=== PATIENT | female | born 1935 | race African-American/Black ===

== ENCOUNTER 2016-10-15 11:05 | Inpatient (IN) ==
[2016-10-15] MEDS ORDERED: ONDANSETRON 4 MG/2 ML VIAL ONE (11:23)
[2016-10-15] MEDS ORDERED: MORPHINE 2 MG/1 ML SYRINGE IV STA (11:26)
[2016-10-15] MEDS ORDERED: ENOXAPARIN 100 MG/ML SYRINGE SUBCUT STA (11:26)
[2016-10-15] MEDS ORDERED: NITROGLYCERIN 2% OINT 1 INCH/GM PACK TOP STA (11:26)
[2016-10-15] MEDS ORDERED: ASPIRIN 325 MG TABLET PO STA (11:26)
[2016-10-15] MEDS ORDERED: METOPROLOL TARTRATE 5 MG/5 ML VIAL IV STA (11:26)
[2016-10-15] MEDS ORDERED: ONDANSETRON 4 MG/2 ML VIAL IV STA (11:26)
[2016-10-15] MEDS ORDERED: NITROGLYCERIN SL 0.4 MG TABLET SL PRN (11:26)
[2016-10-15] MEDS ORDERED: ENOXAPARIN 60 MG/0.6 ML SYRINGE ONE (11:30)
[2016-10-15] MEDS ORDERED: METOPROLOL TARTRATE 5 MG/5 ML VIAL IV ONE (11:30)
[2016-10-15] MEDS ORDERED: NITROGLYCERIN 2% OINT 1 INCH/GM PACK TOP ONE (11:30)
[2016-10-15] MEDS ORDERED: MORPHINE 2 MG/1 ML SYRINGE ONE (11:30)
[2016-10-15] MEDS ORDERED: ASPIRIN 325 MG TABLET ONE (11:30)
--- NOTE | 2016-10-15 11:38 | Emergency Department Note ---
Getachew Williamson Mantricia, am scribing for, and in the presence of, Rosas Parker MD 11:33. Elena Williamson James D, MD, personally performed the services described in this documentation, ascribed by Zachariah Chilel in my presence, and it is both accurate and complete . Arrival - Arrival Chief Complaint: Chest Pain Stated Complaint: CP/HTN ED Nursing Triage Note: pt c/o midsternal chest pain onset 0900 this am. pain is worse with movement. +sob. pt has rec'd zofran and ntg per EMS. Mode of Arrival: Stretcher Limitations: No Limitations Source: Patient, Family Time Seen by Provider: 10/15/16 11:21 - History of Present Illness HPI Narrative: Pt is an 81 y/o black female arriving to ED with c/o chest pain that onset 0900 today. She states that the pain has been waxing and waning for a week now and worsened today. Pt has a PSHx of open heart surgery and also has stents that were placed by Dr. Trejo. She states that this is the same pain that she experienced before she had her stents placed. She also c/o N/V and abdominal pain. The pain radiates to her back and her sides bilaterally. Pt states that her NTG usually helps; however she states that she does not uses it often. Pt is also very HTN; at time of consultation her blood pressure is 218/136. She reports no other complaints to ED. Onset (ago): hour(s) Consistency: constant Severity: mild Allergies/Adverse Reactions: Allergies Allergy/AdvReac Type Severity Reaction Status Date / Time Penicillins Allergy RASH Verified 10/15/16 11:21 Home Medications: Home Medications Medication Instructions Recorded Confirmed Type Aspirin Chew Tab 81 mg PO DAILY 08/18/15 10/16/16 History Gabapentin 600 mg PO TID 08/18/15 10/16/16 History Lisinopril 20 mg PO DAILY 08/18/15 10/16/16 History Meloxicam 15 mg PO BEDTIME 08/18/15 10/16/16 History Spironolactone 12.5 mg PO DAILY 08/18/15 10/16/16 History Acetaminophen Tab [Tylenol Tab] 325 mg PO BID #30 tablet 10/16/16 Rx Atorvastatin [Lipitor] 20 mg PO DAILY 10/16/16 10/16/16 History Carvedilol [Coreg] 6.25 mg PO BID #60 tablet 10/16/16 Rx Furosemide Tab [Lasix Tab] 10 mg PO DAILY 10/16/16 10/16/16 History Naproxen Sodium [Aleve] 220 mg PO Q8HR PRN 10/16/16 10/16/16 History hydrOXYzine HCl [Hydroxyzine HCl] 25 mg PO TID PRN #0 10/16/16 10/16/16 Rx traMADol TAB [Ultram] 50 mg PO BID tablet 10/16/16 Rx Review of System - Review of System 12 point system: reviewed and no additional remarkable complaints except as stated - Review of System Constitutional: Absent: chills, diaphoresis, fever Eyes: Absent: as per HPI, discharge, pain Cardiovascular: Present: chest pain Gastrointestinal: Present: abdominal pain, nausea, vomiting. Absent: diarrhea Medical,Surgical,& Family Hx - Medical History Cardio: History of: CAD, Hypertension, ID Genitourinary: History of: Kidney Stones Musculoskeletal: History of: Musculoskeletal Problems (age related arthritis) - Surgical History Cardiac Surgeries: Sugical HX of: Cardiac Catheterization (with stents), Cardiac Surgery (CABG) Reproductive Surgeries: Surgical HX of;: Gynecologic Surgery, Hysterectomy - Family History Family History: Reports;: Family Cancer (dad), Family Hypertension, Family Stroke (dad) Denies;: Family Diabetes, Family Heart Disease, Family Psychiatric Problems - Social History Smoking Status: Never smoker Frequency of Alcohol Use: None Type of Drug Use: None Exam Physical Examination: ADULT: GENERAL: This is a well-nourished, well-developed female in no apparent distress. VITAL SIGNS: HEENT: Head is normocephalic and atraumatic. Pupils are equally round and reactive to light. Extraocular movement are intact. Oropharynx is benign with moist mucous membranes. NECK: Neck is soft and supple without tenderness. There are no masses. There is no lymphadenopathy. LUNGS: Lungs are clear to auscultation bilaterally. Chest rises symmetrically. There is no chest wall tenderness. CV: Heart is regular rate and rhythm without murmurs, rubs, or gallops. ABDOMEN: Abdomen is soft, epigastric abdominal pain TTP. There are no abnormal masses palpated. There is no organomegaly. Bowel sounds are present and active. SKIN: Cool and moist. No rash. EXTREMITIES: Patient has full range of motion without tenderness. There is no pedal edema. NEUROLOGIC: Awake, alert, and oriented x4. Cranial nerves II through XII are grossly intact. There are no motorsensory deficits. PSYCHIATRIC: Normal affect. Normal mood. Vital Signs: Vital Signs Temperature 98.0 F 10/16/16 12:00 Pulse Rate 60 10/16/16 14:00 Respiratory Rate 19 10/16/16 14:00 Blood Pressure 105/67 10/16/16 14:00 O2 Sat by Pulse Oximetry 93 L 10/16/16 14:00 Course Course Narrative: Patient was given IV Zofran, morphine, Lopressor, nitroglycerin infusion, and Lovenox subcu on arrival to the emergency department. Patient had progressive improvement in her pain but never had pain totally relieved while in the emergency department. Patient will be taken to the Pulpit Operator for left heart cath and probable PCI. - Consultations Consultation #1: Discussed with Dr. Trejo. Patient will be seen in the emergency department. Time: 11:36 Results - Labs CBC & BMP: 10/16/16 05:00 10/16/16 05:00 Lab Results: I have reviewed the patients labs Labs: Laboratory Tests 10/15/16 11:26 INR 1.0 - EKG EKG results: interpreted by ERMD - Impressions EKG: Normal sinus rhythm with a rate of 66, ST segment depression inferiorly and laterally consistent with ischemia, incomplete right bundle branch block. - Diagnostic Findings Procedure: Chest x-ray: image reviewed by me Critical Care Time Critical Care Time: Yes Total Critical Care Time: 60 (IV morphine, Zofran, subcu Lovenox, IV nitro infusion, IV Lopressor while in emergency department.) Disposition Clinical Impression: Chest pain Case discussed with: patient Disposition: Still a Patient Condition: Guarded New Prescriptions: Rx's Medication Instructions Recorded Acetaminophen Tab [Tylenol Tab] 325 mg PO BID #30 tablet 10/16/16 Carvedilol [Coreg] 6.25 mg PO BID #60 tablet 10/16/16 hydrOXYzine HCl [Hydroxyzine HCl] 25 mg PO TID PRN #0 10/16/16 traMADol TAB [Ultram] 50 mg PO BID tablet 10/16/16
[2016-10-15 11:42] LABS: Basophils % 0.5 % (0.0-0.8); Eosinophils # 0.1 10*3/uL (0.0-0.87); Eosinophils % 1.2 % (0.00-10.9); Hematocrit 39.5 VOL% (35.7-47.0); Hemoglobin 13.1 GM/DL (12.0-16.0); Immature Granulocytes % 0.1 %; Immature Granulocytes Absolute 0.01 #; Lymphocytes # 4.4 10*3/uL (1.4-4.0); Lymphocytes % 57.3 % (21.3-54.2); Mean Corpuscular HGB Conc 33.2 GM/DL (32-36); Mean Corpuscular Hemoglobin 30 PG (27-34); Mean Corpuscular Volume 91.2 FL (87-102); Mean Platelet Volume 9.4 FL (9.6-12.0); Monocytes # 0.5 10*3/uL (0.11-0.8); Monocytes % 5.9 % (1.7-12.7); Neutrophils # 2.7 10*3/uL (1.4-7.4); Platelet Count 282 T/CUMM (130-400); Red Blood Count 4.33 MC/CUMM (3.8-5.5); White Blood Count 7.6 T/CUMM (4-12)
[2016-10-15] MEDS: NITROGLYCERIN DRIP 50 MG/250 ML BOTTLE IV SCH (11:48)
[2016-10-15 11:53] LABS: PT Patient Result 10.4 SECS; Partial Thromboplastin Time 26.1 SECS (0-40)
[2016-10-15] MEDS ORDERED: SODIUM CHLORIDE 0.9% 1,000 ML IV SCH (12:00)
[2016-10-15 12:02] LABS: Band Neutrophils 1 % (0-10); Eosinophils 2 % (0-10); Hypochromasia 1+; Lymphocytes 53 % (20-55); Segmented Neutrophils 37 % (50-85); Total Cells Counted 100
[2016-10-15 12:03] LABS: Microcytosis Slight; Platelet Estimate Normal
--- NOTE | 2016-10-15 12:08 | XRay Report ---
Referring Physician: Rosas Parker Exam: XR chest 1V portable Date: October 15, 2016 at 11:41 AM Reason: Chest pain Comparison: Chest 2 views August 21, 2015 Findings: The cardiac silhouette is again enlarged, and the patient is status post sternotomy. The interstitial markings are mildly prominent bilaterally, which could represent mild pulmonary edema. No pneumothorax or pleural fluid is identified. No acute osseous process is seen. Impression: Cardiomegaly and possible mild pulmonary edema. PROCEDURE INTERPRETED AT [facility] DEPARTMENT OF RADIOLOGY Final Report Signed by: Dr. Izabella Begum
[2016-10-15 12:14] LABS: Albumin 4.2 G/DL (3.4-5.0); Bilirubin,Total 1.2 MG/DL (0.2-1.0); Calcium 9.5 MG/DL (8.5-10.1); Osmolality,Calculated 278.5 MOS/KG (273-304); Potassium 3.6 MMOL/L (3.5-5.1); Total Protein 7.3 G/DL (6.4-8.3)
[2016-10-15] MEDS ORDERED: HEPARIN/NACL 0.9% 2 UNITS/ML 1,000 ML IV ONE (12:25)
[2016-10-15] MEDS ORDERED: LIDOCAINE 1% 20 ML VIAL ONE (12:25)
--- NOTE | 2016-10-15 12:31 | Cardiology History & Physical ---
Assessment and Plan - Time spent with patient Time spent with patient: Greater than 30 minutes (Due to assessment, plan, and documentation.) (1) Unstable angina Status: Acute Assessment and plan: See plan of care listed below. Current Visit: Yes (2) Ischemic cardiomyopathy Status: Chronic Assessment and plan: See plan of care listed below. Current Visit: Yes (3) Hx of CABG Status: Chronic Assessment and plan: See plan of care listed below. Current Visit: No (4) CAD (coronary artery disease) Status: Chronic Assessment and plan: See plan of care listed below. Current Visit: Yes (5) Hypertension Status: Chronic Assessment and plan: See plan of care listed below. Current Visit: Yes (6) Systolic CHF, chronic Status: Chronic Assessment and plan: See plan of care listed below. Current Visit: Yes (7) Hyperlipidemia Status: Chronic Assessment and plan: See plan of care listed below. Current Visit: Yes (8) Arthritis Status: Chronic Assessment and plan: See plan of care listed below. Current Visit: Yes (9) Debility Status: Chronic Assessment and plan: See plan of care listed below. Current Visit: No (10) Non-adherence to medical treatment Status: Chronic Assessment and plan: See plan of care listed below. Current Visit: No History of Present Illness Chief complaint: Chest pain History of present illness: Mobile Lounge Driver Or Operator: Dr. Trejo PCP: Dr. Jade Ms. Moreau is being seen in the emergency room, room #20. Ms. Moreau is a 81 year old -[place] female female with a history of ischemic cardiomyopathy, coronary artery disease, hypertension, hyperlipidemia, chronic systolic congestive heart failure, arthritis, anxiety and depression. She is status post three-vessel coronary artery bypass grafting on 09/07/2012 with GREWAL graft to LAD, vein graft to the intermediate, vein graft to the posterior descending artery. She is status post non-Q-wave infarction 2012 with total occlusion of the intermediate branch which was stented by Dr. Castro. She is status post recurrent infarction 05/29/2013 with occlusion of the intermediate branch with restenting by Dr. Trejo. At that time the GREWAL graft to the LAD was patent, vein graft to PDA was patent and vein graft to the inferior branch was chronically occluded. She quit smoking approximately 40 years ago. Ms. Moreau presented to the emergency room today with complaints of mid to left sided chest pain. Her blood pressure was noted to be 213/117 on admission. She reports this pain has been waxing and waning for approximately 1 week but got worse around 9:00 this morning and she decided to seek treatment. She tells me this is the same pain that she experienced before she had her stents placed. She has associated shortness of breath, nausea, vomiting , and diaphoresis. Upon exam, she is very tender to palpation of her left chest wall beneath the left breast. This pain radiates around to her left side. She also reports she has recently had some occasional left arm pain but has attributed this to arthritis. She has had some chronic issues with chest wall pain but on her EKG today she does have some inferolateral changes that were not present on her EKG from June of this year. She has been placed on a nitro glycerin infusion and also received Zofran and nitroglycerin via EMS. Her initial troponin is negative, creatinine is 1.0, potassium 3.6, H&H 13.1 and 39.5. Given her significant cardiac history and EKG changes, is felt she would be best served with repeat heart catheterization to evaluate for new or worsening blockages. ASSESSMENT/PLAN: 1. UNSTABLE ANGINA - Patient presents with inferolateral EKG changes and symptoms suspicious for angina. Initial troponin is negative, but given her history, it was felt she would be best served with repeat left heart catheterization to evaluate for new or worsening obstructive disease. Dr. Trejo has discussed with Dr. Castillo and he has agreed to take Ms. Moreau to the brick and blocker aid labor this afternoon. 2. ISCHEMIC CARDIOMYOPATHY - Last documented EF 20-40% in September 2015. 3. HISTORY OF CABG - She is status post three-vessel coronary artery bypass grafting on 09/07/2012 with GREWAL graft to LAD, vein graft to the intermediate, vein graft to the posterior descending artery. 4. CAD - She is status post three-vessel coronary artery bypass grafting on 09/07 with GREWAL graft to LAD, vein graft to the intermediate, vein graft to the posterior descending artery. She is status post non-Q-wave infarction 2012 with total occlusion of the intermediate branch which was stented by Dr. Castro. She is status post recurrent infarction 05/29/2013 with occlusion of the intermediate branch with restenting by Dr. Trejo. At that time the GREWAL graft to the LAD was patent, vein graft to PDA was patent and vein graft to the inferior branch was chronically occluded. 5. HYPERTENSION - BP 213/117 on admission. She has been started on IV nitroglycerin. Will continue to monitor and adjust accordingly. 6. CHRONIC SYSTOLIC CHF - Currently has no overt signs of heart failure at this time. 7. HYPERLIPIDEMIA - Continue lipid lowering agent. 8. ARTHRITIS - Chronic. 9. DEBILITY - Chronic. 10. NON-COMPLIANCE - Has had a history of noncompliance with medications in the past. Dr. Trejo to follow with further plan and addendum. Home Medications Medication Instructions Recorded Confirmed Type Aspirin Chew Tab 81 mg PO DAILY 08/18/15 08/18/15 History Carvedilol [Coreg] 25 mg PO BID 08/18/15 08/18/15 History Gabapentin 600 mg PO TID 08/18/15 08/18/15 History Lisinopril 20 mg PO DAILY 08/18/15 08/18/15 History Meloxicam 15 mg PO BEDTIME 08/18/15 08/18/15 History Spironolactone 25 mg PO DAILY 08/18/15 08/18/15 History hydrOXYzine HCl [Hydroxyzine HCl] 25 mg PO TID 08/18/15 08/18/15 History Furosemide Tab [Lasix Tab] 40 mg PO DAILY #30 tablet 08/21/15 Rx Lovastatin [Mevacor] 40 mg PO BEDTIME #30 tablet 08/21/15 Rx Allergies Allergy/AdvReac Type Severity Reaction Status Date / Time Penicillins Allergy RASH Verified 10/15/16 11:21 Review of systems: - Constitutional: Present: As per HPI. Absent: anorexia, chills, daytime sleepiness, excessive sweating, fever(s), frequent falls, headache(s), increased appetite, lethargy, malaise, night sweats, stops breathing during sleep, weakness, weight gain, weight loss, fatigue. - EENT Eyes: Present: As per HPI. Absent: blurry vision, diplopia, loss of vision Ears: Present: As per HPI. Absent: decreased hearing, ear discharge, ear pain Nose, mouth and throat: Present: As per HPI. Absent: dysphagia, epistaxis, headache(s), hoarseness, lip swelling, nasal congestion, neck mass, neck pain, sinus pressure, sore throat, throat swelling, tongue swelling, vertigo - Cardiovascular: Present: chest pain at rest, chest pain with activity, dyspnea, dyspnea on exertion, radiating jaw, neck or arm pain, as per HPI. Absent:edema, claudication, diaphoresis, lightheadedness, orthopnea, palpitations, PND - Respiratory: Present: dyspnea, dyspnea on exertion, as per HPI. Absent: cough , hemoptysis, wheezing, snoring, pain on inspiration - Gastrointestinal: Present: abdominal pain, nausea, vomiting, As per HPI. Absent: bloating, change in bowel habits, constipation, diarrhea, heartburn, hematemesis, hematochezia, loose stools, melena - Genitourinary: Present: As per HPI. Absent: difficulty urinating, dysuria, flank pain, hematuria, nocturia, urinary frequency, urinary incontinence - Musculoskeletal: Present:arthralgias, As per HPI. Absent: back pain, joint swelling, limited range of motion, muscle cramps, muscle weakness - Neurological: Present: As per HPI. Absent: abnormal gait, abnormal speech, behavioral changes, confusion, convulsions, disequilibrium, dizziness, focal weakness, frequent falls, headache(s), memory loss, numbness, paresthesias, radicular pain, syncope, tremor(s) - Psychiatric: Present: As per HPI. Absent: anxiety, confusion, depression, panic attacks - Endocrine: Present: As per HPI. Absent: cold intolerance, fatigue, heat intolerance, polydipsia, polyphagia - Hematologic/Lymphatic: Present: As per HPI. Absent: easy bleeding, easy bruising, lymphadenopathy Medical,Surgical,& Family Hx - Medical History Cardio: History of: CHF, CAD, Hypertension, PR Genitourinary: History of: Kidney Stones Gastrointestinal: History of: GERD Musculoskeletal: History of: Musculoskeletal Problems (age related arthritis) - Surgical History Cardiac Surgeries: Sugical HX of: Cardiac Catheterization (with stents), Cardiac Surgery (CABG) Reproductive Surgeries: Surgical HX of;: Gynecologic Surgery, Hysterectomy - Family History Family History: Reports;: Family Cancer (dad), Family Hypertension, Family Stroke (dad) Denies;: Family Diabetes, Family Heart Disease, Family Psychiatric Problems - Social History Smoking Status: Former smoker Frequency of Alcohol Use: None Type of Drug Use: None Marital Status: Legally Lives With:: Alone Functional capacity: independent ambulation Cardiology Physical Exam - Constitutional Vitals: Vital Signs Temp Pulse Resp BP Pulse Ox 98.0 F 69 18 213/117 100 10/15/16 11:15 10/15/16 11:15 10/15/16 11:51 10/15/16 11:15 10/15/16 11:05 Intake and Output 10/14/16 10/15/16 10/15/16 22:59 06:59 14:59 Other: Weight 137 lb Patient Weight 10/16/16 06:59 Weight 137 lb Exam: General appearance: Pleasant and cooperative. Normal weight, no acute distress. - Head Head exam: Present: normal inspection, normocephalic, atraumatic. Absent: hematoma, laceration - Eye Eye exam: Present: EOMI. Absent: conjunctival injection, nystagmus, periorbital swelling, scleral icterus, laceration to eyelids Pupils: Present: PERRL. Absent: constricted, dilated, fixed, irregular, unequal - ENT ENT exam: Present: normal exam, normal external ear exam - Neck Neck exam: Present: normal inspection. Absent: lymphadenopathy, meningismus, tenderness, thyromegaly - Respiratory Respiratory exam: Present: clear to auscultation bilaterally. Absent: accessory muscle use, chest wall tenderness - Cardiovascular Cardiovascular exam: Present: regular rate and rhythm, chest wall tenderness. Absent: carotid bruit, gallop, JVD, rubs, murmur - GI/Abdominal GI/Abdominal exam: Present: normal bowel sounds, soft. Absent: distended, firm , guarding, hernia, mass, tenderness, rebound. - Extremities Exam Extremities exam: Present: normal inspection, normal capillary refill. Upper extremity pulses 2+. Lower extremity pulses 2+. Absent: calf tenderness, edema -Musculoskeletal Exam Musculoskeletal: Present: No Fluid Collection, No Pain, Normal Range of Motion - Back Exam Back exam: Present: normal inspection. Absent: muscle spasm, vertebral tenderness - Neurological Exam Neurological exam: Present: alert, oriented X3, grossly intact without resting or essential tremor - Psychiatric Psychiatric exam: Present: normal affect, normal mood - Skin Skin exam: Present: normal color, warm, dry, intact. Absent: cyanosis, diaphoretic, rash, urticaria Result/EKG - Labs CBC & BMP: 10/15/16 11:26 10/15/16 11:26 Lab Results: I have reviewed the past 24 hour labs Labs: Laboratory Results - last 24 hr 10/15/16 10/15/16 10/15/16 11:26 11:26 11:26 WBC 7.6 RBC 4.33 Hgb 13.1 Hct 39.5 MCV 91.2 MCH 30 MCHC 33.2 RDW 13.0 Plt Count 282 MPV 9.4 L Neut % (Auto) 35.0 L Lymph % (Auto) 57.3 H [place] % (Auto) 5.9 Eos % (Auto) 1.2 Baso % (Auto) 0.5 Neut # (Auto) 2.7 Lymph # (Auto) 4.4 H [place] # (Auto) 0.5 Eos # (Auto) 0.1 Baso # (Auto) 0.0 Total Counted 100 Immature Gran % 0.1 Nucleated RBC % 0.0 Immature Gran # 0.01 Segmented Neutrophils 37 L Band Neutrophils 1 Lymphocytes 53 Monocytes 7 Eosinophils 2 Nucleated RBCs # 0.00 Platelet Estimate Normal Hypochromasia 1+ Microcytosis Slight INR 1.0 PT Patient/Control Mix 10.4 Circ Anticoag PTT 26.1 Sodium 139 Potassium 3.6 Chloride 104 Carbon Dioxide 25 Anion Gap 13.6 BUN 15 Creatinine 1.00 GFR Calculation 61 BUN/Creatinine Ratio 15.00 Glucose 114 H Calculated Osmolality 278.5 Calcium 9.5 Total Bilirubin 1.20 H AST 22 ALT 33 Alkaline Phosphatase 104 Troponin I Total Protein 7.3 Albumin 4.2 Globulin 3.1 Albumin/Globulin Ratio 1.3 Lipase 80.0 10/15/16 11:26 WBC RBC Hgb Hct MCV MCH MCHC RDW Plt Count MPV Neut % (Auto) Lymph % (Auto) [place] % (Auto) Eos % (Auto) Baso % (Auto) Neut # (Auto) Lymph # (Auto) [place] # (Auto) Eos # (Auto) Baso # (Auto) Total Counted Immature Gran % Nucleated RBC % Immature Gran # Segmented Neutrophils Band Neutrophils Lymphocytes Monocytes Eosinophils Nucleated RBCs # Platelet Estimate Hypochromasia Microcytosis INR PT Patient/Control Mix Circ Anticoag PTT Sodium Potassium Chloride Carbon Dioxide Anion Gap BUN Creatinine GFR Calculation BUN/Creatinine Ratio Glucose Calculated Osmolality Calcium Total Bilirubin AST ALT Alkaline Phosphatase Troponin I < 0.015 Total Protein Albumin Globulin Albumin/Globulin Ratio Lipase - EKG EKG results: interpreted by me, sinus rhythm (With ST-T abnormality)
[2016-10-15] MEDS ORDERED: fentaNYL 100 MCG/2 ML VIAL ONE (12:41)
[2016-10-15] MEDS ORDERED: MIDAZOLAM 2 MG/2 ML VIAL ONE (12:41)
--- NOTE | 2016-10-15 12:41 | History and Physical Update ---
Sedation H&P Update - History and Physical H&P was reviewed, the patient examined and there: are no changes in the patients condition since last H&P was completed. - Dictation Physical: refer to H&P completed by admitting physician - Physical Exam Mental Status: alert and oriented Heart: regular rate and rhythm Lung: clear to auscultation ([place] has few scant bibasilar rales.) Abdomen: within normal limits Vitals: within normal limits - Sedation Plan for Sedation: minimal Patient Consent: Procedure disscussed with patient and patinet has consented., Risks and benefits were discussed with patient,including infection,, bleeding, injury to surrounding structures, seizure, temporary nerve, Patient understands and accepts potential risks/benefits and agrees to, proceed. ASA Class: IV Airway Assessment: Class II: Soft palate, uvula, fauces visible
[2016-10-15] MEDS ORDERED: ACETAMINOPHEN 325 MG TABLET PO PRN (12:55)
[2016-10-15] MEDS ORDERED: ZALEPLON 5 MG CAPSULE PO PRN (12:55)
[2016-10-15] MEDS ORDERED: BISACODYL 5 MG TABLET PO PRN (12:55)
[2016-10-15] MEDS ORDERED: MAGNESIUM SULF RIDER 2 GM in PREMIX 1 EACH IV PRN (12:55)
[2016-10-15] MEDS ORDERED: MAGNESIUM SULF RIDER 4 GM in PREMIX 1 EACH IV PRN (12:55)
[2016-10-15] MEDS ORDERED: EPTIFIBATIDE 75 MG/100 ML BOTTLE IV ONE (13:08)
[2016-10-15] MEDS ORDERED: EPTIFIBATIDE 20,000 MCG/10 ML VIAL ONE (13:08)
--- NOTE | 2016-10-15 13:42 | Cardiac Catheterization ---
Date of Procedure:: 10/15/16 Pre-op Diagnosis: Acute coronary syndrome (typical pain with abnormal EKG and known coronary artery disease initial troponin negative) Post-op diagnosis: same Procedure: Procedure: 1. Left heart catheterization resting hemodynamics 2. Selective left and right coronary angiography 3. Selective saphenous vein graft injection to the RCA 4. Selective angiography left subclavian artery with visualization of the ALEJANDRINA graft in situ to the distal LAD 5. Right femoral iliac angiography 6. Closure right femoral arteriotomy Angio-Seal closure device 7. Wiring attempt of possible acute but apparent chronic occlusion of the ostium of the second diagonal (unsuccessful with her course wire felt to be chronic and aborted) After consent was taken from the patient. Taken to the catheterization lab for left heart catheterization via the femoral artery. Time out was taken and recorded. 1% lidocaine was infiltrated in the skin and subcutaneous tissue overlying the right femoral artery. Modified Seldinger technique and an 18- gauge LikeWhere needle was used for access to the right femoral artery. An 0.35 J- wire was advanced through the needle into the central aorta under fluoroscopy. A small skin was made and a 6 Azeri sheath was placed over the wire. The sheath was aspirated and flushed. A JL46 was advanced over the wires in the left main coronary artery was selectively engaged. Multiple orthogonal views of the left system were obtained. The catheter was then exchanged over the wire. The sheath was aspirated and flushed. A JR4 catheter was advanced over the wire into the central aorta. The right coronary was selectively engaged and orthogonal views of the right coronary artery were obtained. The catheter was then pulled back in the saphenous vein graft to the RCA was visualized and 2 orthogonal views. Cath was pulled back and the left subclavian was selectively engaged in AP projection BISHOP cranial projection of this ALEJANDRINA graft to the distal LAD was visualized. The catheter was then exchanged over the wire, the sheath was aspirated and flushed. At this time an angled pigtail catheter was advanced across the aortic valve into the ventricle. Pressure measurements were obtained. Pullback measurements were performed. At this time Integrilin bolus and infusion were initiated on the background of milligrams every morning subcu Lovenox given in the emergency room and EBU 3.5 guiding catheter advanced over the wire in the central aorta the left main coronary selectively engaged. A 180 cm [email or web address]-water wire was advanced into the proximal LAD and attempts to wire the first diagonal were unsuccessful. The area of the nipple was engaged but was very difficult would not advance. This certainly looks as though it is not acute. Several attempts were made unsuccessfully based on the patient's frailty the presentation etc. was felt that it was best not to proceed with [employer] techniques at this time in this acute setting. This is a relatively small vessel a long area of stenosis and a small target of in-stent restenosis. The roll table operator reviewed the films. The sheath was aspirated and flushed and a right femoral and iliac angiography was performed. The access site was amenable for closure and the area was reprepped with ChloraPrep and draped with sterile towels. The Angio-Seal closure device was used in standard technique. There was no hematoma and distal pulses were good. Total diagnostic fluoroscopy time 4.6 minutes total fluoroscopy dose 389 mGy Total contrast exposure 110 cc of Visipaque FINDINGS: LV: 146/11 LVEDP: 24 Ao: 142/76 EF: Not assessed LM: Mild luminal irregularities. LAD: Left anterior descending artery is a large vessel is occluded just after the takeoff of the second diagonal. Both the first and second diagonal who previously been stented. The first diagonal has a abrupt cut off just after leaving the mother vessel and has a discrete pointed suggestive of an acute occlusion however there is collaterals develop to the distal portion of this vessel is filled by collaterals from the second diagonal into the stent. This is retrograde filling. The second diagonal stents are patent with mild lumen loss. LCx: This is a nondominant vessel is diffusely moderately diseased and places up to 60%. RCA: Is a large dominant vessel that is diffusely diseased but no high-grade epicardial stenosis. Saphenous vein graft to the distal RCA is unremarkable. There is a large ALEJANDRINA to the distal LAD no high-grade epicardial stenosis there is a branch vessel that is not occluded. RFA/ELIZABETH: There is mild luminal irregularities and is highly calcified vessel. Assessment: 1. The only identifiable change since her 2013 post PCI intervention is 100% occluded second diagonal. This appears to be chronic based on inability to wire it. 2. Decompensated ischemic cardiomyopathy left ventricular cell pressure 24 3. Widely patent GREWAL to the LAD 4. Widely patent saphenous vein graft to distal RCA 5. 100% occlusion of the first diagonal stent 6. Uncontrolled blood pressure (above pressures were measured on a nitro infusion at 20 mics per minute) PLAN: 1. Look for other causes of the patient's acute chest pain 2. Control blood pressure 3. Wean nitrates and resume heart failure regimen 4. Cardiac rehabilitation evaluation Implants: Angio-Seal closure device Anesthesia: minimal conscious sedation Surgeon / Physician: Anu Castillo Non Profit Director: none Estimated blood loss: none Specimens: none sent Condition: stable Disposition: ICU/CCU - Medications / Follow-up
[2016-10-15] MEDS: GABAPENTIN 600 MG TABLET PO SCH ×2 (15:30→20:51)
[2016-10-15] MEDS: hydrOXYzine HCL 25 MG TABLET PO SCH ×2 (15:31→20:52)
[2016-10-15] MEDS: PANTOPRAZOLE 40 MG TABLET PO SCH (15:31)
[2016-10-15] MEDS: traMADol 50 MG TABLET PO SCH ×2 (16:29→20:51)
[2016-10-15] MEDS: ACETAMINOPHEN 325 MG TABLET PO SCH (20:52)
[2016-10-15] MEDS ORDERED: CARVEDILOL 25 MG TABLET PO SCH (21:00)
[2016-10-15] MEDS ORDERED: LOVASTATIN 20 MG TABLET PO SCH (21:00)
--- NOTE | 2016-10-16 04:44 | EKG Report ---
Stationary ECG Study [facility] ER Test Date: 10/15/2016 11:15:36 AM Pat Name: ZOE POLLOCK Department: Room: Gender: F Folder Operator: : 1935 Requested by: Rosas Holbrook Order Number: [id number] Reading MD: VALENCIA BANKS Intervals [place] Rate: 66 P: 17 NC: 184 QRS: 166 QRSD: 96 T: 200 QT: 414 QTc: 427 Interpretive Statements SINUS RHYTHM INCOMPLETE RIGHT BUNDLE BRANCH BLOCK RIGHT VENTRICULAR HYPERTROPHY MODERATE ST DEPRESSION Electronically Signed On 10-15-16 17:10:51 CDT by VALENCIA BANKS [email or web address]
--- NOTE | 2016-10-16 04:44 | EKG Report ---
Stationary ECG Study [facility] Test Date: 10/15/2016 2:32:57 PM Pat Name: ZOE POLLOCK Department: Room: Gender: F Solar Installer: ADRIÁN : 1935 Requested by: Rosas Holbrook Order Number: [id number] Reading MD: VALENCIA BANKS Intervals [place] Rate: 57 P: 27 ID: [id number] QRS: -56 QRSD: 91 T: 151 QT: 487 QTc: 480 Interpretive Statements SINUS RHYTHM WITH PROLONGED ID INTERVAL WITH OCCASIONAL VENTRICULAR PREMATURE COMPLEXES LEFT ANTERIOR FASCICULAR BLOCK VOLTAGE CRITERIA FOR LVH POSSIBLE ANTERIOR MYOCARDIAL INFARCTION, OF INDETERMINATE AGE MODERATE T-WAVE ABNORMALITY, CONSIDER LATERAL ISCHEMIA INTERPRETATION BASED ON A DEFAULT AGE OF 40 YEARS Electronically Signed On 10-15-16 17:11:34 CDT by VALENCIA BANKS [email or web address]
[2016-10-16 05:55] LABS: Basophils % 0.7 % (0.0-0.8); Eosinophils # 0.1 10*3/uL (0.0-0.87); Eosinophils % 1.5 % (0.00-10.9); Hematocrit 32.6 VOL% (35.7-47.0); Hemoglobin 10.5 GM/DL (12.0-16.0); Immature Granulocytes % 0.2 %; Immature Granulocytes Absolute 0.01 #; Lymphocytes % 49.3 % (21.3-54.2); Mean Corpuscular HGB Conc 32.2 GM/DL (32-36); Mean Corpuscular Hemoglobin 30 PG (27-34); Mean Corpuscular Volume 93.4 FL (87-102); Mean Platelet Volume 9.7 FL (9.6-12.0); Monocytes # 0.4 10*3/uL (0.11-0.8); Monocytes % 6.2 % (1.7-12.7); Neutrophils # 2.5 10*3/uL (1.4-7.4); Neutrophils % 42.1 % (38.7-73.9); Platelet Count 229 T/CUMM (130-400); Red Blood Count 3.49 MC/CUMM (3.8-5.5)
[2016-10-16 06:26] LABS: Calcium 8.4 MG/DL (8.5-10.1); Osmolality,Calculated 279.3 MOS/KG (273-304); Potassium 3.6 MMOL/L (3.5-5.1)
[2016-10-16 06:29] LABS: Bilirubin,Total 1.1 MG/DL (0.2-1.0); Calcium 8.2 MG/DL (8.5-10.1); Osmolality,Calculated 280.3 MOS/KG (273-304); Potassium 3.6 MMOL/L (3.5-5.1); Risk Ratio 1.99; Total Protein 5.3 G/DL (6.4-8.3); VLDL CHOLESTEROL 11.6 MG/DL
[2016-10-16] MEDS: POTASSIUM CHLORIDE 20 MEQ TABLET PO PRN ×2 (07:09→09:08)
[2016-10-16] MEDS ORDERED: hydrOXYzine HCL 25 MG TABLET PO PRN (08:56)
[2016-10-16] MEDS ORDERED: CARVEDILOL 25 MG TABLET PO SCH (09:00)
[2016-10-16] MEDS ORDERED: LISINOPRIL 20 MG TABLET PO SCH (09:00)
[2016-10-16] MEDS ORDERED: ASPIRIN CHEW 81 MG TABLET PO SCH (09:00)
[2016-10-16] MEDS ORDERED: FUROSEMIDE 40 MG TABLET PO SCH (09:00)
[2016-10-16] MEDS ORDERED: SPIRONOLACTONE 25 MG TABLET PO SCH (09:00)
[2016-10-16] MEDS: GABAPENTIN 600 MG TABLET PO SCH ×2 (09:06→15:56)
[2016-10-16] MEDS: traMADol 50 MG TABLET PO SCH (09:06)
[2016-10-16] MEDS: PANTOPRAZOLE 40 MG TABLET PO SCH (09:08)
[2016-10-16] MEDS: ACETAMINOPHEN 325 MG TABLET PO SCH (09:16)
[2016-10-16] MEDS ORDERED: CARVEDILOL 3.125 MG TABLET PO SCH (09:30)
[2016-10-16] MEDS: NITROGLYCERIN DRIP 50 MG/250 ML BOTTLE IV SCH (12:12)
[2016-10-16] MEDS ORDERED: CARVEDILOL 6.25 MG TABLET PO SCH (12:57)
--- NOTE | 2016-10-16 14:14 | Discharge Summary ---
Hospital Course - Hospital Course Hospital Course: Transit Driver: Dr. Trejo PCP: Dr. Jade Ms. Moreau is a 81 year old -[place] female female with a history of ischemic cardiomyopathy, coronary artery disease, hypertension, hyperlipidemia, chronic systolic congestive heart failure, arthritis, anxiety and depression. She presented to the emergency room yesterday afternoon with complaints of mid to left sided chest pain. She had some inferolateral ST depression which is new compared to EKG in June 2016. She is also having some reproducible left -sided chest wall pain and reported that it was similar to her presenting pain but she seemed to have little bit more than just chest wall pain which is chronic for her. Dr. Castillo was available was asked to perform left heart catheterization to further define her coronary anatomy. This was done and the only identifiable change since her 2013 post PCI intervention is 100% occluded second diagonal which appears to be chronic since it was unable to be wired. She was found to have widely patent GREWAL to the LAD and vein graft to the distal RCA. Her cardiac biomarkers were unremarkable. It does not appear that she had a STEMI during this hospitalization and is more likely that her pain is coming from her chest wall pain which we have been treating. Following catheterization, she had some bradycardia during the night which is improved today. She takes Coreg 25 mg p.o. twice daily at home and we have decreased her dose to 6.25 mg p.o. twice daily. Upon exam today, she reports she is feeling much better. Her vital signs and lab work are stable and at this time she has met criteria for discharge. Her right groin is without bleeding or hematoma or bruit. Femoral pulses 3+. Distal pulses are present and palpable bilaterally. Upon discharge, we will continue her treatment for her chest wall pain and have her to follow-up with Dr. Trejo in 2-3 weeks. She will be given a handwritten prescription for Tramadol from Dr. Trejo upon discharge. - Time spent with patient Time with patient DS: Greater than 30 minutes Diagnosis - Discharge Diagnosis (1) Chest wall pain Status: Acute (2) Chest wall pain, chronic Status: Chronic (3) Ischemic cardiomyopathy Status: Chronic (4) Hx of CABG Status: Chronic (5) CAD (coronary artery disease) Status: Chronic (6) Hypertension Status: Chronic (7) Systolic CHF, chronic Status: Chronic (8) Hyperlipidemia Status: Chronic (9) Arthritis Status: Chronic (10) Debility Status: Chronic (11) Non-adherence to medical treatment Status: Chronic Specialty Discharge - Follow Up or Referrals Follow up with: Cristi Trejo MD [Physician] - 2 Weeks (Follow up with Dr. Trejo in 2-3 weeks. ) Discharge Plan - Discharge Data Disposition: Disch To Home/Self Care Condition at Discharge: Stable Discharge Diet: heart healthy Activity: no lifting (Do not lift over 5# x1 week. ) Hygiene: may shower (Do not sumberge cath site beneath water for 1 week. ) Weight Bearing at Discharge: full weight bearing Contact your physician if you experience:: fever over 101, Difficulty voiding, Redness or swelling, Nausea/Vomiting, Shortness of breath, Bleeding, pain uncontrolled by pain medications - Discharge Medications New traMADol TAB [Ultram] 50 mg PO BID tablet Acetaminophen Tab [Tylenol Tab] 325 mg PO BID #30 tablet Carvedilol [Coreg] 6.25 mg PO BID #60 tablet Continue Spironolactone 12.5 mg PO DAILY Meloxicam 15 mg PO BEDTIME Gabapentin 600 mg PO TID Lisinopril 20 mg PO DAILY Aspirin Chew Tab 81 mg PO DAILY Atorvastatin [Lipitor] 20 mg PO DAILY Furosemide Tab [Lasix Tab] 10 mg PO DAILY Naproxen Sodium [Aleve] 220 mg PO Q8HR PRN PRN Reason: Pain Changed hydrOXYzine HCl [Hydroxyzine HCl] 25 mg PO TID PRN #0 PRN Reason: Itching Discontinued Carvedilol [Coreg] 3.125 mg PO BID - Follow Up or Referral - Forms/Instructions Instructions: Left Heart Catheterization (DC), Hypertrophic Cardiomyopathy (GEN ), Heart Healthy Diet (GEN), Coronary Artery Disease in Women (GEN) Exam - Constitutional Vitals: Period Temp Pulse Resp BP Sys/Leon Pulse Ox Last 24 Hr 97.0 F-98.3 F 49-66 10-22 83-166/52-94 93-100 Exam: General appearance: Pleasant and cooperative. Normal weight, no acute distress. - Head Head exam: Present: normal inspection, normocephalic, atraumatic. Absent: hematoma, laceration - Eye Eye exam: Present: EOMI. Absent: conjunctival injection, nystagmus, periorbital swelling, scleral icterus, laceration to eyelids Pupils: Present: PERRL. Absent: constricted, dilated, fixed, irregular, unequal - ENT ENT exam: Present: normal exam, normal external ear exam - Neck Neck exam: Present: normal inspection. Absent: lymphadenopathy, meningismus, tenderness, thyromegaly - Respiratory Respiratory exam: Present: clear to auscultation bilaterally. Absent: accessory muscle use, chest wall tenderness - Cardiovascular Cardiovascular exam: Present: regular rate and rhythm, chest wall tenderness. Absent: carotid bruit, gallop, JVD, rubs, murmur - GI/Abdominal GI/Abdominal exam: Present: normal bowel sounds, soft. Absent: distended, firm , guarding, hernia, mass, tenderness, rebound. - Extremities Exam Extremities exam: Present: normal inspection, normal capillary refill. Upper extremity pulses 2+. Lower extremity pulses 2+. Absent: calf tenderness, edema -Musculoskeletal Exam Musculoskeletal: Present: No Fluid Collection, No Pain, Normal Range of Motion - Back Exam Back exam: Present: normal inspection. Absent: muscle spasm, vertebral tenderness - Neurological Exam Neurological exam: Present: alert, oriented X3, grossly intact without resting or essential tremor - Psychiatric Psychiatric exam: Present: normal affect, normal mood - Skin Skin exam: Present: normal color, warm, dry, intact. Absent: cyanosis, diaphoretic, rash, urticaria Discharge Results Procedures and tests throughout hospitalization: Date of Procedure:: 10/15/16 Procedure: 1. Left heart catheterization resting hemodynamics 2. Selective left and right coronary angiography 3. Selective saphenous vein graft injection to the RCA 4. Selective angiography left subclavian artery with visualization of the ALEJANDRINA graft in situ to the distal LAD 5. Right femoral iliac angiography 6. Closure right femoral arteriotomy Angio-Seal closure device 7. Wiring attempt of possible acute but apparent chronic occlusion of the ostium of the second diagonal (unsuccessful with her course wire felt to be chronic and aborted) FINDINGS: LV: 146/11 LVEDP: 24 Ao: 142/76 EF: Not assessed LM: Mild luminal irregularities. LAD: Left anterior descending artery is a large vessel is occluded just after the takeoff of the second diagonal. Both the first and second diagonal who previously been stented. The first diagonal has a abrupt cut off just after leaving the mother vessel and has a discrete pointed suggestive of an acute occlusion however there is collaterals develop to the distal portion of this vessel is filled by collaterals from the second diagonal into the stent. This is retrograde filling. The second diagonal stents are patent with mild lumen loss. LCx: This is a nondominant vessel is diffusely moderately diseased and places up to 60%. RCA: Is a large dominant vessel that is diffusely diseased but no high-grade epicardial stenosis. Saphenous vein graft to the distal RCA is unremarkable. There is a large ALEJANDRINA to the distal LAD no high-grade epicardial stenosis there is a branch vessel that is not occluded. RFA/ELIZABETH: There is mild luminal irregularities and is highly calcified vessel. Assessment: 1. The only identifiable change since her 2013 post PCI intervention is 100% occluded second diagonal. This appears to be chronic based on inability to wire it. 2. Decompensated ischemic cardiomyopathy left ventricular cell pressure 24 3. Widely patent GREWAL to the LAD 4. Widely patent saphenous vein graft to distal RCA 5. 100% occlusion of the first diagonal stent 6. Uncontrolled blood pressure (above pressures were measured on a nitro infusion at 20 mics per minute) PLAN: 1. Look for other causes of the patient's acute chest pain 2. Control blood pressure 3. Wean nitrates and resume heart failure regimen 4. Cardiac rehabilitation evaluation Labs on day of discharge: Labs from last 24 hours 10/16/16 10/16/16 10/16/16 05:00 05:00 05:00 WBC 6.0 RBC 3.49 L Hgb 10.5 L D Hct 32.6 L MCV 93.4 MCH 30 MCHC 32.2 RDW 13.0 Plt Count 229 MPV 9.7 Neut % (Auto) 42.1 Lymph % (Auto) 49.3 [place] % (Auto) 6.2 Eos % (Auto) 1.5 Baso % (Auto) 0.7 Neut # (Auto) 2.5 Lymph # (Auto) 3.0 [place] # (Auto) 0.4 Eos # (Auto) 0.1 Baso # (Auto) 0.0 Immature Gran % 0.2 Nucleated RBC % 0.0 Immature Gran # 0.01 Nucleated RBCs # 0.00 Sodium 141 141 Potassium 3.6 3.6 Chloride 108 H 107 Carbon Dioxide 25 28 Anion Gap 11.6 9.6 BUN 14 14 Creatinine 0.90 0.90 GFR Calculation 70 70 BUN/Creatinine Ratio 15.00 15.00 Glucose 71 L 73 L Calculated Osmolality 279.3 280.3 Calcium 8.4 L 8.2 L Total Bilirubin 1.10 H AST 16 ALT 26 Alkaline Phosphatase 75 Troponin I Total Protein 5.3 L Albumin 3.0 L Globulin 2.3 Albumin/Globulin Ratio 1.3 Triglycerides 58 Cholesterol 133 LDL Cholesterol 62.0 VLDL Cholesterol 11.6 HDL Cholesterol 67 H Heart Disease Risk Ratio 1.99 10/15/16 10/15/16 18:05 15:28 WBC RBC Hgb Hct MCV MCH MCHC RDW Plt Count MPV Neut % (Auto) Lymph % (Auto) [place] % (Auto) Eos % (Auto) Baso % (Auto) Neut # (Auto) Lymph # (Auto) [place] # (Auto) Eos # (Auto) Baso # (Auto) Immature Gran % Nucleated RBC % Immature Gran # Nucleated RBCs # Sodium Potassium Chloride Carbon Dioxide Anion Gap BUN Creatinine GFR Calculation BUN/Creatinine Ratio Glucose Calculated Osmolality Calcium Total Bilirubin AST ALT Alkaline Phosphatase Troponin I 0.022 0.019 Total Protein Albumin Globulin Albumin/Globulin Ratio Triglycerides Cholesterol LDL Cholesterol VLDL Cholesterol HDL Cholesterol Heart Disease Risk Ratio DS: Provider Date of admission: 10/15/16 12:54 Attending physician on admission: Cristi Trejo MD Consults: 10/15/16 13:20 Consult to Cardiac Rehabilitation [CONS] Routine Reason for Cardiac Rehabilitation: Risk Factor Modification Discharging clinician: RACHEL Viear Expected date of discharge: 10/16/16
[2016-10-16 14:25] VITALS: BP 105/67
== END 2016-10-16 17:05 | disposition home or self-care (01) | DRG 287 ==
LOC: EDBD → EDUNIT# → N.ED 11:05 → N.CL 12:08 → N.CC 12:30
PROVIDERS: ADMIT Internal Medicine Cardiovascular Disease; ATTEND Internal Medicine Cardiovascular Disease

== ENCOUNTER 2017-07-12 18:52 | Inpatient (IN) ==
[2017-07-12] MEDS ORDERED: ASPIRIN 325 MG TABLET PO STA (21:26)
[2017-07-12] MEDS ORDERED: KETOROLAC 30 MG/1 ML VIAL IV STA (21:27)
[2017-07-12 21:32] LABS: Basophils # 0.1 10*3/uL (0.0-0.2); Basophils % 0.8 % (0.0-0.8); Eosinophils # 0.1 10*3/uL (0.0-0.87); Eosinophils % 1.1 % (0.00-10.9); Hematocrit 40.7 VOL% (35.7-47.0); Hemoglobin 13.5 GM/DL (12.0-16.0); Immature Granulocytes % 0.3 %; Immature Granulocytes Absolute 0.02 #; Lymphocytes # 2.9 10*3/uL (1.4-4.0); Lymphocytes % 45.5 % (21.3-54.2); Mean Corpuscular HGB Conc 33.2 GM/DL (32-36); Mean Corpuscular Hemoglobin 31 PG (27-34); Mean Corpuscular Volume 92.7 FL (87-102); Mean Platelet Volume 9.9 FL (9.6-12.0); Monocytes # 0.4 10*3/uL (0.11-0.8); Monocytes % 6.7 % (1.7-12.7); Neutrophils # 2.9 10*3/uL (1.4-7.4); Neutrophils % 45.6 % (38.7-73.9); Platelet Count 262 T/CUMM (130-400); Red Blood Count 4.39 MC/CUMM (3.8-5.5); Red Cell Distribution Width 13.2 % (9.3-17.3); White Blood Count 6.4 T/CUMM (4-12)
[2017-07-12] MEDS ORDERED: ASPIRIN 325 MG TABLET ONE (21:37)
[2017-07-12] MEDS ORDERED: KETOROLAC 30 MG/1 ML VIAL ONE (21:37)
[2017-07-12 21:49] LABS: Albumin 3.7 G/DL (3.4-5.0); Bilirubin,Total 0.5 MG/DL (0.2-1.0); Calcium 9.1 MG/DL (8.5-10.1); Osmolality,Calculated 283.3 MOS/KG (273-304); Potassium 3.7 MMOL/L (3.5-5.1); Total Protein 6.7 G/DL (6.4-8.3)
[2017-07-12] MEDS ORDERED: PANTOPRAZOLE 40 MG VIAL IV STA (22:59)
[2017-07-12] MEDS ORDERED: PANTOPRAZOLE 40 MG VIAL IV ONE (23:19)
[2017-07-13] MEDS ORDERED: hydrALAZINE 20 MG/1 ML VIAL IV PRN (02:51)
[2017-07-13] MEDS ORDERED: ONDANSETRON 4 MG/2 ML VIAL IV PRN (02:51)
[2017-07-13] MEDS ORDERED: MORPHINE 2 MG/1 ML SYRINGE IV PRN (02:51)
[2017-07-13] MEDS ORDERED: ACETAMINOPHEN 325 MG TABLET PO PRN (02:51)
[2017-07-13 04:03] LABS: Risk Ratio 2.23; Thyroid Stimulating Hormone 2.16 uIU/ml (0.358-3.74)
[2017-07-13] MEDS: NITROGLYCERIN 2% OINT 1 INCH/GM PACK TOP SCH ×2 (06:44→17:57)
[2017-07-13] MEDS ORDERED: PANTOPRAZOLE 40 MG TABLET PO SCH (09:00)
[2017-07-13] MEDS ORDERED: ASPIRIN 325 MG TABLET PO SCH (09:00)
[2017-07-13] MEDS: ASPIRIN EC 81 MG TABLET PO SCH (09:13)
[2017-07-13] MEDS: ENOXAPARIN 40 MG/0.4 ML SYRINGE SUBCUT SCH (09:13)
[2017-07-13] MEDS: DOCUSATE SODIUM 100 MG CAPSULE PO SCH ×2 (09:14→22:36)
[2017-07-13] MEDS: SPIRONOLACTONE 25 MG TABLET PO SCH (10:04)
[2017-07-13] MEDS: ATORVASTATIN 20 MG TABLET PO SCH (10:04)
[2017-07-13] MEDS: CARVEDILOL 6.25 MG TABLET PO SCH ×2 (10:04→22:35)
[2017-07-13] MEDS: LISINOPRIL 20 MG TABLET PO SCH (10:04)
[2017-07-13] MEDS: FUROSEMIDE 20 MG TABLET PO SCH (10:04)
[2017-07-13] MEDS ORDERED: ALUMINUM/MAGNES/SIMETH MAX STR 30 ML UDCUP PO PRN (17:42)
[2017-07-13] MEDS ORDERED: ALUM/MAG/SIMETH/LIDO VISC 1:1 30 ML BOTTLE PO ONE (17:42)
[2017-07-13] MEDS: GABAPENTIN 100 MG CAPSULE PO SCH ×2 (17:54→22:36)
[2017-07-13] MEDS: ACETAMINOPHEN 325 MG TABLET PO SCH ×2 (17:54→22:36)
[2017-07-13] MEDS: PANTOPRAZOLE 40 MG TABLET PO SCH (22:36)
[2017-07-14 04:06] LABS: Basophils % 0.7 % (0.0-0.8); Eosinophils # 0.1 10*3/uL (0.0-0.87); Eosinophils % 0.9 % (0.00-10.9); Hematocrit 35.5 VOL% (35.7-47.0); Hemoglobin 11.9 GM/DL (12.0-16.0); Immature Granulocytes % 0.2 %; Immature Granulocytes Absolute 0.01 #; Lymphocytes # 3.1 10*3/uL (1.4-4.0); Lymphocytes % 54.1 % (21.3-54.2); Mean Corpuscular HGB Conc 33.5 GM/DL (32-36); Mean Corpuscular Hemoglobin 31 PG (27-34); Mean Platelet Volume 9.8 FL (9.6-12.0); Monocytes # 0.4 10*3/uL (0.11-0.8); Monocytes % 7.4 % (1.7-12.7); Neutrophils # 2.1 10*3/uL (1.4-7.4); Neutrophils % 36.7 % (38.7-73.9); Platelet Count 226 T/CUMM (130-400); Red Blood Count 3.86 MC/CUMM (3.8-5.5); Red Cell Distribution Width 13.2 % (9.3-17.3); White Blood Count 5.7 T/CUMM (4-12)
[2017-07-14 04:34] LABS: Band Neutrophils 2 % (0-10); Eosinophils 3 % (0-10); Lymphocytes 52 % (20-55); Macrocytosis 1+; Platelet Estimate Normal; Segmented Neutrophils 41 % (50-85); Total Cells Counted 100
[2017-07-14 04:38] LABS: Bilirubin,Total 0.8 MG/DL (0.2-1.0); Calcium 8.4 MG/DL (8.5-10.1); Osmolality,Calculated 282.3 MOS/KG (273-304); Potassium 3.8 MMOL/L (3.5-5.1); Total Protein 5.8 G/DL (6.4-8.3)
[2017-07-14 04:42] LABS: Calcium 8.5 MG/DL (8.5-10.1); Osmolality,Calculated 276.7 MOS/KG (273-304); Potassium 3.8 MMOL/L (3.5-5.1)
[2017-07-14] MEDS: NITROGLYCERIN 2% OINT 1 INCH/GM PACK TOP SCH (05:55)
[2017-07-14] MEDS: DOCUSATE SODIUM 100 MG CAPSULE PO SCH (09:52)
[2017-07-14] MEDS: ACETAMINOPHEN 325 MG TABLET PO SCH (09:52)
[2017-07-14] MEDS: GABAPENTIN 100 MG CAPSULE PO SCH (09:53)
[2017-07-14] MEDS: ENOXAPARIN 40 MG/0.4 ML SYRINGE SUBCUT SCH (09:53)
[2017-07-14] MEDS: PANTOPRAZOLE 40 MG TABLET PO SCH (09:53)
[2017-07-14] MEDS: SPIRONOLACTONE 25 MG TABLET PO SCH (09:53)
[2017-07-14] MEDS: CARVEDILOL 6.25 MG TABLET PO SCH (09:53)
[2017-07-14] MEDS: FUROSEMIDE 20 MG TABLET PO SCH (09:53)
[2017-07-14] MEDS: ASPIRIN EC 81 MG TABLET PO SCH (09:53)
[2017-07-14] MEDS: ATORVASTATIN 20 MG TABLET PO SCH (09:53)
[2017-07-14] MEDS: LISINOPRIL 20 MG TABLET PO SCH (09:53)
[2017-07-14] MEDS ORDERED: LIDOCAINE 100 MG/5 ML SYRINGE ONE (11:37)
[2017-07-14] MEDS ORDERED: PROPOFOL 200 MG/20 ML VIAL IV ONE (11:37)
[2017-07-14] MEDS ORDERED: ETOMIDATE 20 MG/10 ML VIAL IV ONE (11:37)
[2017-07-14] MEDS ORDERED: GLYCOPYRROLATE 0.4 MG/2 ML VIAL ONE (11:37)
[2017-07-14 12:05] VITALS: BP 158/99
== END 2017-07-14 14:15 | disposition home or self-care (01) | DRG 392 ==
LOC: N.ED 18:52 → N.EDINP 07-13 00:06 → N.TELES 07-13 02:10

== ENCOUNTER 2018-02-28 18:35 | Observation (INO) ==
[2018-02-28] MEDS ORDERED: ONDANSETRON 4 MG/2 ML VIAL IV STA (19:19)
[2018-02-28] MEDS ORDERED: MORPHINE 4 MG/1 ML VIAL IV STA (19:19)
[2018-02-28 19:51] LABS: Basophils % 0.1 % (0.0-0.8); Hematocrit 37.2 VOL% (35.7-47.0); Hemoglobin 12.5 GM/DL (12.0-16.0); Immature Granulocytes % 0.4 %; Immature Granulocytes Absolute 0.03 #; Lymphocytes # 1.7 10*3/uL (1.4-4.0); Lymphocytes % 21.9 % (21.3-54.2); Mean Corpuscular HGB Conc 33.6 GM/DL (32-36); Mean Corpuscular Hemoglobin 31 PG (27-34); Mean Corpuscular Volume 90.7 FL (87-102); Mean Platelet Volume 9.6 FL (9.6-12.0); Monocytes # 0.4 10*3/uL (0.11-0.8); Monocytes % 4.7 % (1.7-12.7); Neutrophils # 5.7 10*3/uL (1.4-7.4); Neutrophils % 72.9 % (38.7-73.9); Platelet Count 245 T/CUMM (130-400); Red Cell Distribution Width 13.3 % (9.3-17.3); White Blood Count 7.8 T/CUMM (4-12)
[2018-02-28 20:16] LABS: Albumin 3.8 G/DL (3.4-5.0); Bilirubin,Total 0.6 MG/DL (0.2-1.0); Calcium 9.1 MG/DL (8.5-10.1); Osmolality,Calculated 273.1 MOS/KG (273-304); Potassium 3.7 MMOL/L (3.5-5.1); Total Protein 7.4 G/DL (6.4-8.3)
[2018-02-28] MEDS ORDERED: FUROSEMIDE 40 MG/4 ML VIAL IV STA (22:40)
[2018-03-01] MEDS ORDERED: MORPHINE 4 MG/1 ML VIAL IV PRN (01:01)
[2018-03-01] MEDS ORDERED: NITROGLYCERIN SL 0.4 MG TABLET SL PRN (01:01)
[2018-03-01] MEDS ORDERED: ONDANSETRON 4 MG/2 ML VIAL IV PRN (01:01)
[2018-03-01] MEDS ORDERED: hydrALAZINE 20 MG/1 ML VIAL IV ONE (01:07)
[2018-03-01] MEDS ORDERED: cloNIDine 0.1 MG TABLET PO PRN (01:49)
[2018-03-01] MEDS ORDERED: hydrALAZINE 20 MG/1 ML VIAL IV PRN (02:02)
[2018-03-01 03:56] LABS: Basophils % 0.1 % (0.0-0.8); Hematocrit 43.2 VOL% (35.7-47.0); Hemoglobin 14.1 GM/DL (12.0-16.0); Immature Granulocytes % 0.2 %; Immature Granulocytes Absolute 0.02 #; Lymphocytes # 2.3 10*3/uL (1.4-4.0); Mean Corpuscular HGB Conc 32.6 GM/DL (32-36); Mean Corpuscular Hemoglobin 30 PG (27-34); Mean Corpuscular Volume 91.9 FL (87-102); Mean Platelet Volume 9.6 FL (9.6-12.0); Monocytes # 0.5 10*3/uL (0.11-0.8); Monocytes % 6.1 % (1.7-12.7); Neutrophils # 5.7 10*3/uL (1.4-7.4); Neutrophils % 66.6 % (38.7-73.9); Platelet Count 266 T/CUMM (130-400); Red Cell Distribution Width 13.2 % (9.3-17.3); White Blood Count 8.5 T/CUMM (4-12)
[2018-03-01 04:17] LABS: Albumin 4.1 G/DL (3.4-5.0); Bilirubin,Total 0.9 MG/DL (0.2-1.0); Calcium 9.1 MG/DL (8.5-10.1); Osmolality,Calculated 272.2 MOS/KG (273-304); Potassium 3.8 MMOL/L (3.5-5.1); Total Protein 7.9 G/DL (6.4-8.3)
[2018-03-01] MEDS: CARVEDILOL 6.25 MG TABLET PO SCH ×2 (08:44→20:25)
[2018-03-01] MEDS: LISINOPRIL 20 MG TABLET PO SCH (08:44)
[2018-03-01] MEDS: ENOXAPARIN 40 MG/0.4 ML SYRINGE SUBCUT SCH (08:44)
[2018-03-01] MEDS: ATORVASTATIN 20 MG TABLET PO SCH (08:44)
[2018-03-01] MEDS: ACETAMINOPHEN 325 MG TABLET PO SCH ×2 (08:44→20:25)
[2018-03-01] MEDS: FAMOTIDINE 20 MG TABLET PO SCH ×2 (08:44→20:25)
[2018-03-01] MEDS: FUROSEMIDE 20 MG/2 ML VIAL IV SCH ×2 (08:45→15:11)
[2018-03-01] MEDS ORDERED: PANTOPRAZOLE 40 MG TABLET PO SCH (09:00)
[2018-03-01] MEDS ORDERED: POTASSIUM CHLORIDE 20 MEQ TABLET PO PRN (10:10)
[2018-03-01] MEDS: GABAPENTIN 100 MG CAPSULE PO SCH ×3 (10:34→20:25)
[2018-03-01] MEDS: traMADol 50 MG TABLET PO SCH ×2 (10:34→20:26)
[2018-03-01] MEDS: amLODIPine 5 MG TABLET PO SCH (11:53)
[2018-03-02 02:33] LABS: Basophils % 0.1 % (0.0-0.8); Eosinophils % 0.2 % (0.00-10.9); Hematocrit 40.7 VOL% (35.7-47.0); Hemoglobin 13.2 GM/DL (12.0-16.0); Immature Granulocytes % 0.3 %; Immature Granulocytes Absolute 0.03 #; Lymphocytes # 3.2 10*3/uL (1.4-4.0); Lymphocytes % 35.6 % (21.3-54.2); Mean Corpuscular HGB Conc 32.4 GM/DL (32-36); Mean Corpuscular Hemoglobin 30 PG (27-34); Mean Corpuscular Volume 91.7 FL (87-102); Mean Platelet Volume 9.5 FL (9.6-12.0); Monocytes # 0.7 10*3/uL (0.11-0.8); Monocytes % 7.9 % (1.7-12.7); Neutrophils # 4.9 10*3/uL (1.4-7.4); Neutrophils % 55.9 % (38.7-73.9); Platelet Count 251 T/CUMM (130-400); Red Blood Count 4.44 MC/CUMM (3.8-5.5); Red Cell Distribution Width 13.6 % (9.3-17.3); White Blood Count 8.8 T/CUMM (4-12)
[2018-03-02 02:49] LABS: Osmolality,Calculated 276.4 MOS/KG (273-304); Potassium 4.9 MMOL/L (3.5-5.1)
[2018-03-02] MEDS: GABAPENTIN 100 MG CAPSULE PO SCH (08:16)
[2018-03-02] MEDS: LISINOPRIL 20 MG TABLET PO SCH (08:16)
[2018-03-02] MEDS: ENOXAPARIN 40 MG/0.4 ML SYRINGE SUBCUT SCH (08:16)
[2018-03-02] MEDS: FAMOTIDINE 20 MG TABLET PO SCH (08:16)
[2018-03-02] MEDS: FUROSEMIDE 20 MG/2 ML VIAL IV SCH (08:17)
[2018-03-02] MEDS: ATORVASTATIN 20 MG TABLET PO SCH (08:17)
[2018-03-02] MEDS: CARVEDILOL 6.25 MG TABLET PO SCH (08:17)
[2018-03-02] MEDS: amLODIPine 5 MG TABLET PO SCH (08:17)
[2018-03-02] MEDS: ACETAMINOPHEN 325 MG TABLET PO SCH (08:17)
[2018-03-02] MEDS: traMADol 50 MG TABLET PO SCH (08:17)
[2018-03-02 08:20] VITALS: BP 149/84
[2018-03-02] MEDS ORDERED: APIXABAN 5 MG TABLET PO SCH (09:30)
[2018-03-02] MEDS ORDERED: ASPIRIN EC 81 MG TABLET PO SCH (10:00)
== END 2018-03-02 11:39 | disposition home or self-care (01) ==
LOC: EDBD → EDUNIT# → N.EDINP 18:35 → N.ED 18:35 → N.TELES 03-01 00:08
PROVIDERS: ADMIT Internal Medicine; ATTEND Internal Medicine

== ENCOUNTER 2018-04-10 14:51 | Inpatient (IN) ==
[2018-04-10 15:46] LABS: Basophils % 0.6 % (0.0-0.8); Eosinophils # 0.1 10*3/uL (0.0-0.87); Eosinophils % 0.7 % (0.00-10.9); Hematocrit 35.1 VOL% (35.7-47.0); Hemoglobin 11.2 GM/DL (12.0-16.0); Immature Granulocytes % 0.4 %; Immature Granulocytes Absolute 0.03 #; Lymphocytes # 1.9 10*3/uL (1.4-4.0); Lymphocytes % 27.4 % (21.3-54.2); Mean Corpuscular HGB Conc 31.9 GM/DL (32-36); Mean Corpuscular Hemoglobin 30 PG (27-34); Mean Corpuscular Volume 95.4 FL (87-102); Mean Platelet Volume 9.3 FL (9.6-12.0); Monocytes # 0.6 10*3/uL (0.11-0.8); Monocytes % 8.9 % (1.7-12.7); Neutrophils # 4.3 10*3/uL (1.4-7.4); Platelet Count 293 T/CUMM (130-400); Red Blood Count 3.68 MC/CUMM (3.8-5.5); White Blood Count 6.9 T/CUMM (4-12)
[2018-04-10 16:03] LABS: Albumin 2.9 G/DL (3.4-5.0); Bilirubin,Total 0.6 MG/DL (0.2-1.0); Calcium 8.9 MG/DL (8.5-10.1); Osmolality,Calculated 276.7 MOS/KG (273-304); Potassium 3.9 MMOL/L (3.5-5.1); Total Protein 6.6 G/DL (6.4-8.3)
[2018-04-10 16:05] LABS: Troponin I < 0.015 NG/ML (0.00-0.045)
[2018-04-10 16:14] LABS: PT Patient Result 10.5 SECS; Partial Thromboplastin Time 26.5 SECS (0-40)
[2018-04-10] MEDS ORDERED: ASPIRIN EC 325 MG TABLET PO STA (17:43)
[2018-04-10] MEDS ORDERED: ASPIRIN 325 MG TABLET ONE (18:21)
[2018-04-10] MEDS ORDERED: ALBUTEROL/IPRATROPIUM 3 ML NEB RESP TX STA (20:12)
[2018-04-10] MEDS ORDERED: ACETAMINOPHEN 325 MG TABLET PO PRN (20:12)
[2018-04-10] MEDS: FUROSEMIDE 40 MG/4 ML VIAL IV SCH (21:44)
[2018-04-10 21:45] LABS: Risk Ratio 2.36; VLDL CHOLESTEROL 10.4 MG/DL
[2018-04-10] MEDS: FAMOTIDINE 20 MG TABLET PO SCH (21:45)
[2018-04-10] MEDS: CARVEDILOL 6.25 MG TABLET PO SCH (21:45)
[2018-04-10] MEDS: APIXABAN 5 MG TABLET PO SCH (21:45)
[2018-04-10 21:51] LABS: Troponin I < 0.015 NG/ML (0.00-0.045)
[2018-04-11 05:20] LABS: Basophils % 0.6 % (0.0-0.8); Eosinophils # 0.1 10*3/uL (0.0-0.87); Eosinophils % 1.9 % (0.00-10.9); Hematocrit 35.1 VOL% (35.7-47.0); Hemoglobin 11.2 GM/DL (12.0-16.0); Immature Granulocytes % 0.5 %; Immature Granulocytes Absolute 0.03 #; Lymphocytes % 30.5 % (21.3-54.2); Mean Corpuscular HGB Conc 31.9 GM/DL (32-36); Mean Corpuscular Hemoglobin 30 PG (27-34); Mean Corpuscular Volume 94.1 FL (87-102); Mean Platelet Volume 9.6 FL (9.6-12.0); Monocytes # 0.6 10*3/uL (0.11-0.8); Monocytes % 9.8 % (1.7-12.7); Neutrophils # 3.7 10*3/uL (1.4-7.4); Neutrophils % 56.7 % (38.7-73.9); Platelet Count 316 T/CUMM (130-400); Red Blood Count 3.73 MC/CUMM (3.8-5.5); White Blood Count 6.4 T/CUMM (4-12)
[2018-04-11 06:05] LABS: Alanine Aminotransferase 21 U/L (13-56); Albumin 2.5 G/DL (3.4-5.0); Alkaline Phosphatase 90 U/L (45-117); Aspartate Amino Transferase 12 U/L (0-37); Blood Urea Nitrogen 24 MG/DL (7-18); Calcium 8.6 MG/DL (8.5-10.1); Glucose 96 MG/DL (74-106); Osmolality,Calculated 282.4 MOS/KG (273-304); Potassium 3.7 MMOL/L (3.5-5.1); Sodium 140 MMOL/L (136-145); Total Protein 6.3 G/DL (6.4-8.3); Troponin I < 0.015 NG/ML (0.00-0.045)
[2018-04-11 07:59] LABS: Apearance,Urine CLEAR (Clear); Bilirubin,Urine Negative (Negative); Blood, Urine Negative (Negative); Glucose,Urine (UA) Negative (Negative); Ketones,Urine Negative (Negative); Mucus,Urine Occasional /LPF (Occasional); Nitrite,Urine Negative (Negative); Protein,Urine Negative; Squamous Epithelial Cell,Urine Occasional /HPF (0-10); Urine Color Straw (Yellow); Urine Specific Gravity 1.011 (1.001-1.035); Urine Urobilinogen < 2.0 EU/DL (0.2-1.0); WBC,Urine 2 /HPF (0-6)
[2018-04-11] MEDS: FUROSEMIDE 40 MG/4 ML VIAL IV SCH ×2 (09:20→16:40)
[2018-04-11] MEDS: FAMOTIDINE 20 MG TABLET PO SCH ×2 (09:21→21:10)
[2018-04-11] MEDS: APIXABAN 5 MG TABLET PO SCH ×2 (09:21→21:10)
[2018-04-11] MEDS: LISINOPRIL 20 MG TABLET PO SCH (09:21)
[2018-04-11] MEDS: CARVEDILOL 6.25 MG TABLET PO SCH ×2 (09:21→21:10)
[2018-04-11] MEDS: ATORVASTATIN 20 MG TABLET PO SCH (09:21)
[2018-04-11] MEDS ORDERED: metOLazone 5 MG TABLET PO ONE (13:02)
[2018-04-11] MEDS: traMADol 50 MG TABLET PO SCH ×2 (13:57→21:10)
[2018-04-11] MEDS: GABAPENTIN 100 MG CAPSULE PO SCH ×3 (13:57→21:10)
[2018-04-11] MEDS: ACETAMINOPHEN 325 MG TABLET PO SCH ×2 (13:57→21:10)
[2018-04-11] MEDS: ONDANSETRON 4 MG/2 ML VIAL IV PRN (21:10)
[2018-04-12] MEDS: ONDANSETRON 4 MG/2 ML VIAL IV PRN ×3 (03:42→13:19)
[2018-04-12 05:05] LABS: Bilirubin,Total 0.5 MG/DL (0.2-1.0); Calcium 8.9 MG/DL (8.5-10.1); Osmolality,Calculated 277.1 MOS/KG (273-304); Potassium 3.5 MMOL/L (3.5-5.1); Total Protein 7.2 G/DL (6.4-8.3)
[2018-04-12] MEDS: FUROSEMIDE 40 MG/4 ML VIAL IV SCH (09:34)
[2018-04-12] MEDS: LISINOPRIL 20 MG TABLET PO SCH (09:36)
[2018-04-12] MEDS: FAMOTIDINE 20 MG TABLET PO SCH ×2 (09:36→22:02)
[2018-04-12] MEDS: ATORVASTATIN 20 MG TABLET PO SCH (09:36)
[2018-04-12] MEDS: APIXABAN 5 MG TABLET PO SCH ×2 (09:36→22:02)
[2018-04-12] MEDS: GABAPENTIN 100 MG CAPSULE PO SCH ×3 (09:36→22:03)
[2018-04-12] MEDS: ACETAMINOPHEN 325 MG TABLET PO SCH ×2 (09:37→22:03)
[2018-04-12] MEDS: CARVEDILOL 6.25 MG TABLET PO SCH ×2 (09:37→22:03)
[2018-04-12] MEDS: traMADol 50 MG TABLET PO SCH (09:37)
[2018-04-12] MEDS: NITROFURANTOIN MACRO/MONO 100 MG CAPSULE PO SCH ×2 (13:20→22:02)
[2018-04-12] MEDS ORDERED: PROMETHAZINE INJ 12.5 MG in SODIUM CHLORIDE 0.9% 50 ML IV ONE ×2 (13:38→16:00)
[2018-04-13 04:59] LABS: Calcium 9.4 MG/DL (8.5-10.1); Osmolality,Calculated 275.2 MOS/KG (273-304); Potassium 3.4 MMOL/L (3.5-5.1)
[2018-04-13] MEDS: NITROFURANTOIN MACRO/MONO 100 MG CAPSULE PO SCH (08:23)
[2018-04-13] MEDS: GABAPENTIN 100 MG CAPSULE PO SCH (08:23)
[2018-04-13] MEDS: ACETAMINOPHEN 325 MG TABLET PO SCH (08:23)
[2018-04-13] MEDS: FAMOTIDINE 20 MG TABLET PO SCH (08:23)
[2018-04-13] MEDS: LISINOPRIL 20 MG TABLET PO SCH (08:23)
[2018-04-13] MEDS: ATORVASTATIN 20 MG TABLET PO SCH (08:24)
[2018-04-13] MEDS: APIXABAN 5 MG TABLET PO SCH (08:24)
[2018-04-13] MEDS: CARVEDILOL 6.25 MG TABLET PO SCH (08:24)
[2018-04-13 08:28] VITALS: BP 114/72
[2018-04-13] MEDS ORDERED: POTASSIUM CHLORIDE 20 MEQ TABLET PO PRN (08:31)
[2018-04-13] MEDS ORDERED: SODIUM CHLORIDE 0.9% 1,000 ML IV SCH (09:00)
[2018-04-13] MEDS ORDERED: FUROSEMIDE 40 MG/4 ML VIAL IV SCH (09:00)
== END 2018-04-13 15:05 | disposition home or self-care (01) | DRG 291 ==
LOC: N.ED 14:51 → SUATTDRO 18:51 → N.EDINP 18:51 → N.TELEN 19:54
PROVIDERS: ADMIT Internal Medicine; ATTEND Internal Medicine

== ENCOUNTER 2018-09-03 09:14 | Observation (INO) ==
[2018-09-03] MEDS ORDERED: NITROGLYCERIN SL 0.4 MG TABLET SL PRN (09:38)
[2018-09-03] MEDS ORDERED: ASPIRIN 325 MG TABLET PO STA (09:38)
[2018-09-03 10:00] LABS: Basophils % 0.7 % (0.0-0.8); Eosinophils # 0.1 10*3/uL (0.0-0.87); Eosinophils % 1.6 % (0.00-10.9); Hematocrit 42.4 VOL% (35.7-47.0); Hemoglobin 13.2 GM/DL (12.0-16.0); Immature Granulocytes % 0.2 %; Immature Granulocytes Absolute 0.01 #; Lymphocytes # 3.1 10*3/uL (1.4-4.0); Lymphocytes % 50.5 % (21.3-54.2); Mean Corpuscular HGB Conc 31.1 GM/DL (32-36); Mean Corpuscular Volume 93.4 FL (87-102); Mean Platelet Volume 9.1 FL (9.6-12.0); Platelet Count 248 T/CUMM (130-400); Red Blood Count 4.54 MC/CUMM (3.8-5.5); Red Cell Distribution Width 13.2 % (9.3-17.3); White Blood Count 6.1 T/CUMM (4-12)
[2018-09-03 10:25] LABS: Apearance,Urine CLEAR (Clear); Bilirubin,Urine Negative (Negative); Blood, Urine Small mg/dL (Negative); Glucose,Urine (UA) Negative (Negative); Ketones,Urine Negative (Negative); Mucus,Urine Occasional /LPF (Occasional); Nitrite,Urine Negative (Negative); Protein,Urine Negative; RBC,Urine 2 /HPF (0-4); Urine Color Straw (Yellow); Urine Specific Gravity 1.011 (1.001-1.035); Urine Urobilinogen < 2.0 EU/DL (0.2-1.0)
[2018-09-03 10:27] LABS: Calcium 9.2 MG/DL (8.5-10.1); Osmolality,Calculated 277.7 MOS/KG (273-304)
[2018-09-03] MEDS ORDERED: ONDANSETRON 4 MG/2 ML VIAL IV PRN (14:09)
[2018-09-03] MEDS ORDERED: ENOXAPARIN 40 MG/0.4 ML SYRINGE ONE (14:19)
[2018-09-03] MEDS ORDERED: ENOXAPARIN 40 MG/0.4 ML SYRINGE SUBCUT SCH (14:30)
[2018-09-03] MEDS: LISINOPRIL 20 MG TABLET PO SCH (14:47)
[2018-09-03] MEDS ORDERED: DEXTROSE 50% 25 GM/50 ML SYRINGE IV PRN (16:21)
[2018-09-03] MEDS ORDERED: GLUCAGON 1 MG VIAL IM PRN (16:21)
[2018-09-03] MEDS: FUROSEMIDE 40 MG/4 ML VIAL IV SCH (16:24)
[2018-09-03] MEDS: INSULIN LISPRO 100 UNIT/ML SUBCUT SCH ×2 (16:44→20:36)
[2018-09-03] MEDS: GABAPENTIN 600 MG TABLET PO SCH (20:36)
[2018-09-03] MEDS: APIXABAN 5 MG TABLET PO SCH (20:36)
[2018-09-03] MEDS: CARVEDILOL 6.25 MG TABLET PO SCH (20:36)
[2018-09-03] MEDS ORDERED: GABAPENTIN 600 MG TABLET PO SCH (21:00)
[2018-09-04 05:08] LABS: Basophils % 0.7 % (0.0-0.8); Eosinophils # 0.1 10*3/uL (0.0-0.87); Eosinophils % 2.2 % (0.00-10.9); Hematocrit 40.5 VOL% (35.7-47.0); Hemoglobin 12.8 GM/DL (12.0-16.0); Lymphocytes % 55.1 % (21.3-54.2); Mean Corpuscular HGB Conc 31.6 GM/DL (32-36); Mean Corpuscular Volume 93.3 FL (87-102); Mean Platelet Volume 9.9 FL (9.6-12.0); Monocytes % 9.2 % (1.7-12.7); Neutrophils % 32.8 % (38.7-73.9); Platelet Count 253 T/CUMM (130-400); Red Blood Count 4.34 MC/CUMM (3.8-5.5); Red Cell Distribution Width 13.1 % (9.3-17.3); White Blood Count 5.5 T/CUMM (4-12)
[2018-09-04 05:54] LABS: Calcium 9.2 MG/DL (8.5-10.1); Osmolality,Calculated 277.7 MOS/KG (273-304); Thyroid Stimulating Hormone 1.96 uIU/ml (0.358-3.74)
[2018-09-04 06:31] LABS: Anisocytosis 1+; Eosinophils 2 % (0-10); Lymphocytes 46 % (20-55); Segmented Neutrophils 47 % (50-85); Total Cells Counted 100
[2018-09-04 06:32] LABS: Platelet Estimate Adequate
[2018-09-04] MEDS: INSULIN LISPRO 100 UNIT/ML SUBCUT SCH ×2 (08:11→11:33)
[2018-09-04] MEDS: GABAPENTIN 600 MG TABLET PO SCH (08:48)
[2018-09-04] MEDS: LISINOPRIL 20 MG TABLET PO SCH (08:48)
[2018-09-04] MEDS: FUROSEMIDE 40 MG/4 ML VIAL IV SCH (08:48)
[2018-09-04] MEDS: APIXABAN 5 MG TABLET PO SCH (08:49)
[2018-09-04] MEDS: CARVEDILOL 6.25 MG TABLET PO SCH (08:49)
[2018-09-04] MEDS ORDERED: ATORVASTATIN 20 MG TABLET PO SCH (09:00)
[2018-09-04] MEDS ORDERED: ASPIRIN CHEW 81 MG TABLET PO SCH (09:00)
[2018-09-04] MEDS ORDERED: PANTOPRAZOLE 40 MG TABLET PO SCH (09:00)
[2018-09-04] MEDS ORDERED: MONTELUKAST 10 MG TABLET PO SCH (09:00)
[2018-09-04] MEDS ORDERED: FUROSEMIDE 40 MG TABLET PO SCH (09:00)
[2018-09-04 12:43] VITALS: BP 116/67
[2018-09-04] MEDS ORDERED: CARVEDILOL 12.5 MG TABLET PO SCH (17:00)
[2018-09-04] MEDS ORDERED: LISINOPRIL 20 MG TABLET PO SCH (21:00)
== END 2018-09-04 14:38 | disposition home or self-care (01) ==
LOC: N.ED 09:14 → N.EDINP 09:14 → N.TELES 13:42
PROVIDERS: ADMIT Internal Medicine; ATTEND Internal Medicine

== ENCOUNTER 2019-02-24 12:46 | Observation (INO) ==
[2019-02-24] MEDS ORDERED: ASPIRIN CHEW 81 MG TABLET PO STA (13:17)
[2019-02-24] MEDS ORDERED: ENOXAPARIN 60 MG/0.6 ML SYRINGE SUBCUT STA (13:19)
[2019-02-24 13:50] LABS: Basophils # 0.1 10*3/uL (0.0-0.2); Basophils % 0.7 % (0.0-0.8); Eosinophils # 0.1 10*3/uL (0.0-0.87); Hematocrit 37.8 VOL% (35.7-47.0); Hemoglobin 12.2 GM/DL (12.0-16.0); Immature Granulocytes % 0.3 %; Immature Granulocytes Absolute 0.02 #; Lymphocytes # 3.2 10*3/uL (1.4-4.0); Lymphocytes % 45.7 % (21.3-54.2); Mean Corpuscular HGB Conc 32.3 GM/DL (32-36); Mean Corpuscular Volume 94.5 FL (87-102); Mean Platelet Volume 9.1 FL (9.6-12.0); Monocytes % 6.5 % (1.7-12.7); Neutrophils % 45.8 % (38.7-73.9); Platelet Count 257 T/CUMM (130-400); Red Cell Distribution Width 13.6 % (9.3-17.3); White Blood Count 6.9 T/CUMM (4-12)
[2019-02-24 14:05] LABS: Albumin 3.7 G/DL (3.4-5.0); Bilirubin,Total 0.8 MG/DL (0.2-1.0); Calcium 9.4 MG/DL (8.5-10.1); Osmolality,Calculated 279.3 MOS/KG (273-304)
[2019-02-24] MEDS ORDERED: NAPROXEN 250 MG TABLET PO PRN (15:23)
[2019-02-24] MEDS ORDERED: ACETAMINOPHEN 325 MG TABLET PO PRN (15:31)
[2019-02-24] MEDS ORDERED: ONDANSETRON 4 MG/2 ML VIAL IV PRN (15:31)
[2019-02-24] MEDS ORDERED: POTASSIUM CHLORIDE 20 MEQ TABLET PO PRN (15:37)
[2019-02-24] MEDS ORDERED: MAGNESIUM SULF RIDER 2 GM in PREMIX 1 EACH IV PRN (15:38)
[2019-02-24] MEDS ORDERED: MAGNESIUM SULF RIDER 4 GM in PREMIX 1 EACH IV PRN (15:38)
[2019-02-24] MEDS ORDERED: INFLUENZA VIRUS VACCINE 0.5 ML SYRINGE IM ONE (16:54)
[2019-02-24] MEDS ORDERED: FUROSEMIDE 40 MG TABLET PO SCH (21:00)
[2019-02-24] MEDS ORDERED: LISINOPRIL 20 MG TABLET PO SCH (21:00)
[2019-02-24] MEDS ORDERED: APIXABAN 5 MG TABLET PO SCH (21:00)
[2019-02-24] MEDS ORDERED: GABAPENTIN 600 MG TABLET PO SCH (21:00)
[2019-02-24] MEDS ORDERED: carvediloL 6.25 MG TABLET PO SCH (21:00)
[2019-02-24] MEDS ORDERED: ASPIRIN CHEW 81 MG TABLET PO SCH (21:00)
[2019-02-25 05:22] LABS: Basophils # 0.1 10*3/uL (0.0-0.2); Eosinophils # 0.1 10*3/uL (0.0-0.87); Eosinophils % 0.8 % (0.00-10.9); Hematocrit 37.8 VOL% (35.7-47.0); Immature Granulocytes % 0.2 %; Immature Granulocytes Absolute 0.01 #; Lymphocytes # 3.4 10*3/uL (1.4-4.0); Lymphocytes % 53.7 % (21.3-54.2); Mean Corpuscular HGB Conc 31.7 GM/DL (32-36); Mean Corpuscular Volume 94.7 FL (87-102); Mean Platelet Volume 9.7 FL (9.6-12.0); Monocytes % 7.8 % (1.7-12.7); Neutrophils % 36.5 % (38.7-73.9); Platelet Count 231 T/CUMM (130-400); Red Blood Count 3.99 MC/CUMM (3.8-5.5); Red Cell Distribution Width 13.7 % (9.3-17.3); White Blood Count 6.3 T/CUMM (4-12)
[2019-02-25 05:43] LABS: Eosinophils 4 % (0-10); Hypochromasia 1+; Lymphocytes 58 % (20-55); Platelet Estimate Adequate; Segmented Neutrophils 32 % (50-85); Total Cells Counted 100
[2019-02-25 05:44] LABS: Atypical Lymphocytes Few
[2019-02-25 05:51] LABS: Calcium 8.3 MG/DL (8.5-10.1); Osmolality,Calculated 278.4 MOS/KG (273-304)
[2019-02-25] MEDS ORDERED: PANTOPRAZOLE 40 MG TABLET PO SCH (09:00)
[2019-02-25] MEDS ORDERED: traMADol 50 MG TABLET PO SCH (11:29)
[2019-02-25 12:16] VITALS: BP 148/84
[2019-02-26] MEDS ORDERED: POTASSIUM CHLORIDE 20 MEQ TABLET PO SCH (09:00)
== END 2019-02-25 16:19 | disposition home or self-care (01) ==
LOC: N.ED 12:46 → N.EDINP 12:46 → N.2W 15:48
PROVIDERS: ADMIT Hospitalist; ATTEND Hospitalist

== ENCOUNTER 2022-04-14 04:52 | Inpatient (IN) ==
[2022-04-09 11:34] LABS: Basophils # 0.1 10*3/uL (0.0-0.2); Eosinophils # 0.1 10*3/uL (0.0-0.87); Eosinophils % 1.9 % (0.00-10.9); Hematocrit 41.8 VOL% (35.7-47.0); Hemoglobin 13.6 GM/DL (12.0-16.0); Immature Granulocytes % 0.1 %; Immature Granulocytes Absolute 0.01 #; Lymphocytes # 3.3 10*3/uL (1.4-4.0); Lymphocytes % 48.2 % (21.3-54.2); Mean Corpuscular HGB Conc 32.5 GM/DL (32-36); Mean Corpuscular Volume 92.7 FL (87-102); Mean Platelet Volume 9.4 FL (9.6-12.0); Monocytes # 0.5 10*3/uL (0.11-0.8); Monocytes % 7.5 % (1.7-12.7); Neutrophils % 41.3 % (38.7-73.9); Platelet Count 333 T/CUMM (130-400); Red Blood Count 4.51 MC/CUMM (3.8-5.5); Red Cell Distribution Width 13.5 % (9.3-17.3); White Blood Count 6.8 T/CUMM (4-12)
[2022-04-09 11:46] LABS: RBC,Urine 2 /HPF (0-4)
[2022-04-09 11:47] LABS: Albumin 4.2 G/DL (3.4-5.0); Bilirubin,Total 0.6 MG/DL (0.20-1.00); Bilirubin,Urine Negative (Negative); Blood, Urine Trace mg/dL (Negative); Calcium 9.5 MG/DL (8.5-10.1); Glucose,Urine (UA) Negative (Negative); Ketones,Urine Negative (Negative); Nitrite,Urine Negative (Negative); Osmolality,Calculated 279.4 MOS/KG (273-304); Potassium 3.4 MMOL/L (3.5-5.1); Protein,Urine Negative (Negative); Total Protein 7.5 G/DL (6.4-8.2); Urine Appearance Clear (Clear); Urine Color Yellow (Yellow); Urine Urobilinogen 0.2 eU/dL (<2.0)
[2022-04-09 11:57] LABS: INR 1.1; PT Patient Result 11.6 SECS (10.1-12.1); Partial Thromboplastin Time 28.8 SECS (23.7-32.9)
[2022-04-14] MEDS ORDERED: CLINDAMYCIN INJ 900 MG/50 ML PREMIX IV ONE (06:00)
[2022-04-14] MEDS ORDERED: VANCOMYCIN INJ 1,000 MG in SODIUM CHLORIDE 0.9% 250 ML IV ONE (06:00)
[2022-04-14] MEDS ORDERED: LACTATED RINGERS 1,000 ML IV SCH (06:45)
[2022-04-14] MEDS ORDERED: GABAPENTIN 400 MG CAPSULE PO ONE (06:53)
[2022-04-14] MEDS ORDERED: FAMOTIDINE 20 MG TABLET PO ONE (06:53)
[2022-04-14] MEDS ORDERED: FAMOTIDINE 20 MG TABLET ONE (06:55)
[2022-04-14] MEDS ORDERED: fentaNYL 100 MCG/2 ML VIAL ONE (06:59)
[2022-04-14] MEDS ORDERED: LIDOCAINE 2% 5 ML VIAL ONE (06:59)
[2022-04-14] MEDS ORDERED: propofoL 200 MG/20 ML VIAL IV ONE ×2 (06:59→07:05)
[2022-04-14] MEDS ORDERED: BUPIVACAINE SPINAL 0.75% 2 ML AMP SPINAL ONE (07:00)
[2022-04-14] MEDS ORDERED: buprenorphine HCL 0.3 MG/ML VIAL ONE (07:00)
[2022-04-14] MEDS ORDERED: SODIUM CHLORIDE 0.9% 250 ML IV ONE (07:05)
[2022-04-14] MEDS ORDERED: TRANEXAMIC ACID 1,000 MG/10 ML VIAL ONE (07:10)
[2022-04-14] MEDS ORDERED: SODIUM CHLORIDE 0.9% 100 ML IV ONE (07:11)
[2022-04-14] MEDS ORDERED: DEXAMETHASONE 4 MG/1 ML VIAL ONE (07:22)
[2022-04-14] MEDS ORDERED: ROPIVACAINE 0.5% 30 ML VIAL ONE (07:22)
[2022-04-14] MEDS ORDERED: BUPIVACAINE MPF 0.25% 30 ML VIAL ONE (07:24)
[2022-04-14] MEDS ORDERED: BACITRACIN OINT 0.9 GM PACK TOP ONE (07:41)
[2022-04-14] MEDS ORDERED: NITROGLYCERIN SL 0.4 MG TABLET SL PRN (09:09)
[2022-04-14] MEDS ORDERED: ONDANSETRON ODT 4 MG TABLET PO PRN (09:09)
[2022-04-14] MEDS ORDERED: FUROSEMIDE 40 MG TABLET PO PRN (09:09)
[2022-04-14] MEDS ORDERED: diphenhydrAMINE CAP 25 MG CAPSULE PO PRN (09:12)
[2022-04-14] MEDS ORDERED: MAGNESIUM HYDROXIDE SUSP 30 ML UDCUP PO PRN (09:12)
[2022-04-14] MEDS ORDERED: MORPHINE 2 MG/1 ML SYRINGE IV PRN ×2 (09:12)
[2022-04-14] MEDS ORDERED: oxyCODONE/ACETAMINOPHEN 5-325 MG TABLET PO PRN (09:12)
[2022-04-14] MEDS ORDERED: ZALEPLON 5 MG CAPSULE PO PRN (09:12)
[2022-04-14] MEDS ORDERED: ePHEDrine 50 MG/ML VIAL ONE (09:36)
[2022-04-14] MEDS ORDERED: LACTATED RINGERS 1,000 ML IV ONE (10:15)
[2022-04-14] MEDS ORDERED: PHENYLEPHRINE 1 MG/10 ML SYRINGE IV ONE (10:15)
[2022-04-14 11:29] LABS: Mucus,Urine Occasional /LPF (Occasional); RBC,Urine <1 /HPF (0-4); Urine Appearance Clear (Clear); Urine Color Yellow (Yellow)
[2022-04-14 11:30] LABS: Bilirubin,Urine Negative (Negative); Blood, Urine Small mg/dL (Negative); Glucose,Urine (UA) Negative (Negative); Ketones,Urine Negative (Negative); Nitrite,Urine Negative (Negative); Protein,Urine 30 mg/dL (Negative); Urine Urobilinogen 0.2 eU/dL (<2.0)
[2022-04-14] MEDS: ONDANSETRON 4 MG/2 ML VIAL IV PRN (13:06)
[2022-04-14] MEDS: CLINDAMYCIN INJ 900 MG/50 ML PREMIX IV SCH ×2 (14:32→21:13)
[2022-04-14] MEDS: carvediloL 6.25 MG TABLET PO SCH (17:32)
[2022-04-14] MEDS: GABAPENTIN 600 MG TABLET PO SCH (21:09)
[2022-04-14] MEDS: ASPIRIN EC 81 MG TABLET PO SCH (21:09)
[2022-04-14] MEDS: ROSUVASTATIN 20 MG TABLET PO SCH (21:09)
[2022-04-14] MEDS: CHOLECALCIFEROL 5,000 UNIT TABLET PO SCH (21:10)
[2022-04-14] MEDS: DOCUSATE SODIUM 100 MG CAPSULE PO SCH (21:11)
[2022-04-14] MEDS: APIXABAN 2.5 MG TABLET PO SCH (21:11)
[2022-04-14] MEDS: PANTOPRAZOLE 40 MG TABLET PO SCH (21:11)
[2022-04-14] MEDS: MONTELUKAST 10 MG TABLET PO SCH (21:11)
[2022-04-14] MEDS: SERTRALINE 25 MG TABLET PO SCH (21:20)
[2022-04-15 04:33] LABS: Basophils % 0.2 % (0.0-0.8); Hematocrit 33.5 VOL% (35.7-47.0); Hemoglobin 10.8 GM/DL (12.0-16.0); Immature Granulocytes % 0.4 %; Immature Granulocytes Absolute 0.04 #; Lymphocytes # 1.6 10*3/uL (1.4-4.0); Mean Corpuscular HGB Conc 32.2 GM/DL (32-36); Mean Platelet Volume 9.3 FL (9.6-12.0); Monocytes # 0.8 10*3/uL (0.11-0.8); Monocytes % 8.9 % (1.7-12.7); Neutrophils % 72.5 % (38.7-73.9); Platelet Count 210 T/CUMM (130-400); Red Blood Count 3.64 MC/CUMM (3.8-5.5); Red Cell Distribution Width 13.3 % (9.3-17.3); White Blood Count 8.9 T/CUMM (4-12)
[2022-04-15] MEDS: oxyCODONE/ACETAMINOPHEN 5-325 MG TABLET PO PRN ×2 (04:33→18:57)
[2022-04-15 05:05] LABS: Calcium 8.9 MG/DL (8.5-10.1); Osmolality,Calculated 282.5 MOS/KG (273-304); Potassium 3.7 MMOL/L (3.5-5.1)
[2022-04-15] MEDS: carvediloL 6.25 MG TABLET PO SCH ×2 (08:20→17:06)
[2022-04-15] MEDS: MEGESTROL 400 MG/10 ML UDCUP PO SCH (08:20)
[2022-04-15] MEDS: APIXABAN 2.5 MG TABLET PO SCH ×2 (08:20→21:47)
[2022-04-15] MEDS: DOCUSATE SODIUM 100 MG CAPSULE PO SCH ×2 (08:20→21:46)
[2022-04-15] MEDS: LACTATED RINGERS 1,000 ML IV SCH (09:48)
[2022-04-15] MEDS: GABAPENTIN 600 MG TABLET PO SCH (21:46)
[2022-04-15] MEDS: ROSUVASTATIN 20 MG TABLET PO SCH (21:46)
[2022-04-15] MEDS: lisinopriL 20 MG TABLET PO SCH (21:47)
[2022-04-15] MEDS: MONTELUKAST 10 MG TABLET PO SCH (21:47)
[2022-04-15] MEDS: ASPIRIN EC 81 MG TABLET PO SCH (21:47)
[2022-04-15] MEDS: CHOLECALCIFEROL 5,000 UNIT TABLET PO SCH (21:47)
[2022-04-15] MEDS: PANTOPRAZOLE 40 MG TABLET PO SCH (21:48)
[2022-04-15] MEDS: ONDANSETRON 4 MG/2 ML VIAL IV PRN (22:01)
[2022-04-15] MEDS: SERTRALINE 25 MG TABLET PO SCH (22:02)
[2022-04-16 04:39] LABS: Basophils % 0.4 % (0.0-0.8); Eosinophils # 0.1 10*3/uL (0.0-0.87); Eosinophils % 1.2 % (0.00-10.9); Hematocrit 29.9 VOL% (35.7-47.0); Immature Granulocytes % 0.7 %; Immature Granulocytes Absolute 0.08 #; Lymphocytes # 3.1 10*3/uL (1.4-4.0); Lymphocytes % 27.9 % (21.3-54.2); Mean Corpuscular HGB Conc 33.4 GM/DL (32-36); Mean Corpuscular Volume 91.4 FL (87-102); Monocytes # 0.9 10*3/uL (0.11-0.8); Monocytes % 8.3 % (1.7-12.7); Neutrophils % 61.5 % (38.7-73.9); Platelet Count 157 T/CUMM (130-400); Red Blood Count 3.27 MC/CUMM (3.8-5.5); Red Cell Distribution Width 13.4 % (9.3-17.3); White Blood Count 11.1 T/CUMM (4-12)
[2022-04-16] MEDS: MEGESTROL 400 MG/10 ML UDCUP PO SCH (08:10)
[2022-04-16] MEDS: carvediloL 6.25 MG TABLET PO SCH ×2 (08:10→16:54)
[2022-04-16] MEDS: DOCUSATE SODIUM 100 MG CAPSULE PO SCH ×2 (08:10→20:00)
[2022-04-16] MEDS: APIXABAN 2.5 MG TABLET PO SCH ×2 (08:10→20:00)
[2022-04-16] MEDS: lisinopriL 20 MG TABLET PO SCH (20:00)
[2022-04-16] MEDS: ASPIRIN EC 81 MG TABLET PO SCH (20:00)
[2022-04-16] MEDS: GABAPENTIN 600 MG TABLET PO SCH (20:00)
[2022-04-16] MEDS: CHOLECALCIFEROL 5,000 UNIT TABLET PO SCH (20:00)
[2022-04-16] MEDS: oxyCODONE/ACETAMINOPHEN 5-325 MG TABLET PO PRN (20:00)
[2022-04-16] MEDS: ROSUVASTATIN 20 MG TABLET PO SCH (20:01)
[2022-04-16] MEDS: SERTRALINE 25 MG TABLET PO SCH (20:01)
[2022-04-16] MEDS: PANTOPRAZOLE 40 MG TABLET PO SCH (20:01)
[2022-04-16] MEDS: MONTELUKAST 10 MG TABLET PO SCH (20:01)
[2022-04-17] MEDS: oxyCODONE/ACETAMINOPHEN 5-325 MG TABLET PO PRN (03:55)
[2022-04-17 05:01] LABS: Basophils % 0.4 % (0.0-0.8); Eosinophils # 0.2 10*3/uL (0.0-0.87); Eosinophils % 2.1 % (0.00-10.9); Hematocrit 29.6 VOL% (35.7-47.0); Hemoglobin 9.5 GM/DL (12.0-16.0); Immature Granulocytes % 0.7 %; Immature Granulocytes Absolute 0.07 #; Lymphocytes # 3.1 10*3/uL (1.4-4.0); Lymphocytes % 29.8 % (21.3-54.2); Mean Corpuscular HGB Conc 32.1 GM/DL (32-36); Mean Corpuscular Volume 92.8 FL (87-102); Mean Platelet Volume 9.1 FL (9.6-12.0); Monocytes # 0.9 10*3/uL (0.11-0.8); Monocytes % 8.2 % (1.7-12.7); Neutrophils % 58.8 % (38.7-73.9); Platelet Count 162 T/CUMM (130-400); Red Blood Count 3.19 MC/CUMM (3.8-5.5); Red Cell Distribution Width 13.4 % (9.3-17.3); White Blood Count 10.6 T/CUMM (4-12)
[2022-04-17] MEDS: APIXABAN 2.5 MG TABLET PO SCH (08:34)
[2022-04-17] MEDS: DOCUSATE SODIUM 100 MG CAPSULE PO SCH (08:34)
[2022-04-17] MEDS: MEGESTROL 400 MG/10 ML UDCUP PO SCH (08:34)
[2022-04-17] MEDS: carvediloL 6.25 MG TABLET PO SCH (08:34)
[2022-04-17 11:03] VITALS: BP 128/77
== END 2022-04-17 11:47 | disposition home health service (06) | DRG 470 ==
LOC: N.SDSINP 04:52 → INTOOBSV 04:52 → N.3E 11:59
PROVIDERS: ADMIT Orthopaedic Surgery; ATTEND Orthopaedic Surgery